=== PATIENT | male | born 1960 ===

== ENCOUNTER 2016-10-17 01:10 | Inpatient (IN) ==
--- NOTE | 2016-10-17 01:29 | Emergency Department Note ---
Arrival - Arrival Chief Complaint: Extremity Problem Stated Complaint: cellulitis ED Nursing Triage Note: Cellulitis to left lower extremity. Transfer from [facility] ER. Mode of Arrival: Stretcher Time Seen by Provider: 10/17/16 01:26 - History of Present Illness HPI Narrative: The patient was seen earlier at [facility] and diagnosed with cellulitis of the left lower extremity. He says symptoms started 2 days ago. The patient does drink alcohol. He denies diabetes. He does not know if he has had fever. He was previously worked up by Dr. Toño meek and sent here for admission. Allergies/Adverse Reactions: Allergies Allergy/AdvReac Type Severity Reaction Status Date / Time No Known Allergies Allergy Unverified 11/12/15 00:27 Home Medications: Home Medications Medication Instructions Recorded Confirmed Type HYDROcodone/ACETAMIN 7.5-325 1 tablet PO Q6H #6 tablet 11/12/15 Rx [[place] 7.5-325] Sulfameth/Trimeth 800-160 Tab 1 tablet PO BID #20 tablet 11/12/15 Rx [Bactrim DS Tab] Review of System - Review of System 12 point system: reviewed and no additional remarkable complaints except as stated Medical,Surgical,& Family Hx - Medical History Cardio: History of: Hypertension Endocrine: No history of: Diabetes Mellitus (IDDM) - Social History Smoking Status: Never smoker Frequency of Alcohol Use: Frequently Type of Drug Use: None Exam Physical Examination: General: Patient is well-developed and well-nourished with no acute distress noted. HEENT: The extraocular muscles are intact. Oropharynx is moist. There is no erythema or exudate. The tympanic membranes are shiny bilaterally. Neck: There is no adenopathy. Full range of motion is noted without pain. The trachea is midline. No JVD is present. Lungs: There is normal excursion of the chest with the lungs sounding clear bilaterally. No subcostal retractions are present. There is no point tenderness present. Heart: The heart has a regular rate and rhythm with no gallops or murmurs. Abdomen: The abdomen is nontender and nondistended with no rebound, guarding, or masses. Bowel sounds are normal. Back: The back demonstrates a normal appearance with no evidence of trauma. Genitourinary: Not examined. Extremities: The extremities demonstrate swelling and redness of the left lower extremity with some weeping at the ankle. The left leg is approximately twice as large as the right. Additionally the left leg is warm. Neuro: Cranial nerves II through XII are checked and intact. There is no focal motor or sensory deficit seen in the extremities. Skin: Skin is warm and dry with no evidence of rash. Vital Signs: Vital Signs Temperature 97.6 F 10/17/16 01:16 Pulse Rate 63 10/17/16 01:16 Respiratory Rate 18 10/17/16 01:16 Blood Pressure 115/77 10/17/16 01:16 O2 Sat by Pulse Oximetry 97 10/17/16 01:16 Course - Consultations Consultation #1: Dr. Wang Helms will evaluate and admit the patient. Time: 01:29 Disposition Clinical Impression: Cellulitis of left lower extremity Case discussed with: patient Disposition: Still a Patient Condition: Stable Time of Disposition: 01:30
[2016-10-17] MEDS ORDERED: DOCUSATE SODIUM 100 MG CAPSULE PO PRN (01:30)
[2016-10-17] MEDS ORDERED: ONDANSETRON 4 MG/2 ML VIAL IV PRN (01:30)
[2016-10-17] MEDS ORDERED: guaiFENesin/DM ER 600-30 MG TABLET PO PRN (01:30)
[2016-10-17] MEDS ORDERED: ZALEPLON 5 MG CAPSULE PO PRN (01:30)
[2016-10-17] MEDS ORDERED: VANCOMYCIN INJ 1,000 MG in SODIUM CHLORIDE 0.9% 250 ML IV STA (01:32)
[2016-10-17] MEDS ORDERED: VANCOMYCIN 1,000 MG VIAL ONE (02:38)
--- NOTE | 2016-10-17 02:48 | Hospitalist History & Physical ---
Assessment and Plan (1) Intoxication Status: Acute Current Visit: Yes (2) Cellulitis Status: Acute Current Visit: No (3) Lower extremity edema Status: Acute Assessment and plan: We will admit patient to our service. Patient will be placed on IV antibiotics. Patient will get a banana bag daily. Patient will wake up and talk to you. We will get an ultrasound in the morning to look for blood clots. The possible abscesses seen on CT scan are on one image. Hopefully patient can be evaluated more clearly when he is not as intoxicated. There is a possibility he would need a surgical evaluation. Current Visit: No History of Present Illness Chief complaint: Transfer from [facility] History of present illness: Mr. Orellana is a 56 year old male who was transferred from [facility]. Per records supplied from the [facility]. Patient is very intoxicated and showed up to the [facility] with a chief complaint of lower extremity left leg that is swollen. I talked to the patient he reports to me that these swelling has been going on for some time. The left leg is obviously red. I was consulted for admission. Patient was not sober enough to contribute any more to his history. Home Medications Medication Instructions Recorded Confirmed Type HYDROcodone/ACETAMIN 7.5-325 1 tablet PO Q6H #6 tablet 11/12/15 Rx [[place] 7.5-325] Sulfameth/Trimeth 800-160 Tab 1 tablet PO BID #20 tablet 11/12/15 Rx [Bactrim DS Tab] Allergies Allergy/AdvReac Type Severity Reaction Status Date / Time No Known Allergies Allergy Unverified 11/12/15 00:27 Medical,Surgical,& Family Hx - Medical History Cardio: History of: Hypertension HEENT: History of: Eye Problem (bilateral cataracts removed 2015) Endocrine: No history of: Diabetes Mellitus (IDDM) - Surgical History Orthopedic Surgeries: Surgical HX of;: Orthopedic Surgery (back 1991) - Social History Smoking Status: Never smoker Frequency of Alcohol Use: Frequently Type of Drug Use: None ROS unobtainable: due to delirium Exam - Constitutional Vitals: Period Temp Pulse Resp BP Sys/Schofield Pulse Ox Last 24 Hr 97.6 F-97.6 F 61-63 18-18 115-115/77-77 97 General appearance: normal weight, disheveled - Head Head exam: Present: normal inspection - Eye Pupils: Present: KAMALJIT - ENT ENT exam: Present: normal exam - Neck Neck exam: Present: normal inspection - Respiratory Respiratory exam: Present: clear to auscultation bilaterally - Cardiovascular Cardiovascular exam: Present: regular rate and rhythm - GI/Abdominal GI/Abdominal exam: Present: normal bowel sounds - Extremities Exam Extremities exam: Present: other (Patient has what appears to be bilateral lymphedema. It is more prominent on the left with erythematous changes noted on his calf and lower extremity) - Back Exam Back exam: Present: normal inspection - Neurological Exam Neurological exam: Present: other (Intoxicated) - Psychiatric Psychiatric exam: Present: other (Intoxicated) - Skin Skin exam: Present: erythema Results - Labs Labs: Labs from [facility] displayed glucose of 104 white count 5.0 hemoglobin 11.2 hematocrit 32.5 platelets 176 INR 1.14 alcohol level 488 BUN 4 creatinine 0.6 serum sodium 129 potassium 3.6 chloride 94 bicarb 22.4 troponin less than 0.15 BMP 77.[address] scan of his lower extremity without IV contrast and following the tibia and fibula. It showed findings compatible with few diffuse lower extremity cellulitis and possible small abscesses
[2016-10-17] MEDS ORDERED: THIAMINE INJ 100 MG, FOLIC ACID INJ 1 MG, MAGNESIUM SULF INJ 2 GM, MULTIVITAMIN INJ 10 ... IV ONE (05:00)
[2016-10-17 05:36] LABS: Basophils % 0.3 % (0.0-0.8); Eosinophils # 0.1 10*3/uL (0.0-0.87); Eosinophils % 1.6 % (0.00-10.9); Hematocrit 31.4 VOL% (42.0-52.0); Hemoglobin 10.8 GM/DL (14.0-18.0); Immature Granulocytes % 0.3 %; Immature Granulocytes Absolute 0.01 #; Lymphocytes # 0.9 10*3/uL (1.4-4.0); Lymphocytes % 29.3 % (21.2-54.2); Mean Corpuscular HGB Conc 34.4 GM/DL (32-36); Mean Corpuscular Hemoglobin 29 PG (27-34); Mean Corpuscular Volume 83.3 FL (87-102); Mean Platelet Volume 8.7 FL (9.6-12.0); Monocytes # 0.5 10*3/uL (0.11-0.8); Monocytes % 17.1 % (1.7-12.7); Neutrophils # 1.6 10*3/uL (1.4-7.4); Neutrophils % 51.4 % (38.7-73.9); Platelet Count 140 T/CUMM (130-400); Red Blood Count 3.77 MC/CUMM (3.8-5.5)
[2016-10-17 05:57] LABS: Band Neutrophils 1 % (0-10); Eosinophils 1 % (0-10); Hypochromasia 1+; Lymphocytes 24 % (20-55); Ovalocytes Slight; Platelet Estimate Normal; Segmented Neutrophils 55 % (50-85); Total Cells Counted 100
[2016-10-17 06:14] LABS: Calcium 7.6 MG/DL (8.5-10.1); Osmolality,Calculated 275.4 MOS/KG (273-304); Potassium 3.7 MMOL/L (3.5-5.1)
--- NOTE | 2016-10-17 07:49 | Ultrasound Report ---
US venous doppler LE BI Indication: Lower extremity swelling and pain. Comparison: None. Technique: Using a transcutaneous probe, grayscale, spectral Doppler, and color Doppler images of the bilateral lower extremity venous structures were captured and stored. Grayscale images prior to and following compression were obtained. Interrogated venous structures include the bilateral common femoral vein, superficial femoral vein (proximal, mid, and distal), and popliteal vein. Findings: There is no evidence of thrombus within the interrogated venous structures. The interrogated venous segments demonstrate presence of both color flow and spectral flow. Impression: 1. No evidence of venous thrombosis. 10/17/2016 7:46 AM PROCEDURE INTERPRETED AT [facility] DEPARTMENT OF RADIOLOGY Final Report Signed by: Dr. Micha Griffin
[2016-10-17] MEDS: CEFTAROLINE 600 MG in SODIUM CHLORIDE 0.9% 100 ML IV SCH ×2 (08:03→20:16)
[2016-10-17] MEDS: PANTOPRAZOLE 40 MG TABLET PO SCH (08:03)
[2016-10-17] MEDS: ENOXAPARIN 40 MG/0.4 ML SYRINGE SUBCUT SCH (08:03)
[2016-10-17] MEDS ORDERED: chlordiazePOXIDE 25 MG CAPSULE PO SCH (09:00)
[2016-10-17] MEDS ORDERED: chlordiazePOXIDE 10 MG CAPSULE PO SCH (12:35)
--- NOTE | 2016-10-17 12:36 | Hospitalist Progress Note ---
Assessment and Plan (1) Cellulitis of left lower extremity Status: Acute Assessment and plan: teflaro IV, no evidence of dvt Current Visit: Yes (2) Alcoholic Status: Acute Assessment and plan: cmp in am, beer on each tray, thiamine folate Current Visit: Yes (3) Anemia Status: Acute Assessment and plan: protonix Current Visit: Yes Hospitalist: Subjective Interval history: Patient really wanted to go home today. We asked him if we restarted his beer that he would stay and he agreed. Patient originally said he had to go home to pay bills but I believe that he was trying to get him to drink. His leg still is warm and erythematous and I do not want him leaving AMA. Exam - Constitutional Vitals: Period Temp Pulse Resp BP Sys/Schofield Pulse Ox Last 24 Hr 97.2 F-98.2 F 61-88 18-20 102-123/66-77 97-99 Exam: Heart Rate-[RRR] Lungs-[CTAB] GI-[+bs soft, NT] Ext-[severe swelling and erythema of LLE] Neuro [Motor 5/5], [alert and oriented times 3] psych [normal mood and affect] General [no acute distress] Results - Labs CBC & BMP: 10/17/16 05:29 10/17/16 05:29 Lab Results: I have reviewed the past 24 hour labs Labs: blood cx times 2 pending - Diagnostic Findings Procedure: Ultrasound: report reviewed by me (no dvt )
[2016-10-17] MEDS: THIAMINE 100 MG TABLET PO SCH (12:54)
[2016-10-17] MEDS: FOLIC ACID 1 MG TABLET PO SCH (12:54)
[2016-10-17] MEDS: SODIUM CHLORIDE 0.45% 1,000 ML IV SCH ×2 (12:55→23:04)
[2016-10-18 05:16] LABS: Basophils % 0.3 % (0.0-0.8); Eosinophils % 0.9 % (0.00-10.9); Hematocrit 31.8 VOL% (42.0-52.0); Hemoglobin 10.6 GM/DL (14.0-18.0); Immature Granulocytes % 0.3 %; Immature Granulocytes Absolute 0.01 #; Lymphocytes # 0.7 10*3/uL (1.4-4.0); Lymphocytes % 22.2 % (21.2-54.2); Mean Corpuscular HGB Conc 33.3 GM/DL (32-36); Mean Corpuscular Hemoglobin 29 PG (27-34); Mean Corpuscular Volume 85.9 FL (87-102); Mean Platelet Volume 9.4 FL (9.6-12.0); Monocytes # 0.5 10*3/uL (0.11-0.8); Monocytes % 15.7 % (1.7-12.7); Neutrophils % 60.6 % (38.7-73.9); Platelet Count 116 T/CUMM (130-400); Red Cell Distribution Width 17.5 % (9.3-17.3); White Blood Count 3.3 T/CUMM (4-12)
[2016-10-18 05:51] LABS: Eosinophils 2 % (0-10); Lymphocytes 20 % (20-55); Segmented Neutrophils 59 % (50-85); Total Cells Counted 100
[2016-10-18 05:52] LABS: Platelet Estimate Adequate
[2016-10-18 06:05] LABS: Albumin 2.4 G/DL (3.4-5.0); Bilirubin,Total 0.9 MG/DL (0.2-1.0); Calcium 7.6 MG/DL (8.5-10.1); Osmolality,Calculated 276.3 MOS/KG (273-304); Potassium 3.7 MMOL/L (3.5-5.1); Total Protein 7.3 G/DL (6.4-8.3)
[2016-10-18] MEDS: SODIUM CHLORIDE 0.45% 1,000 ML IV SCH (09:08)
[2016-10-18] MEDS: FOLIC ACID 1 MG TABLET PO SCH (09:08)
[2016-10-18] MEDS: ENOXAPARIN 40 MG/0.4 ML SYRINGE SUBCUT SCH (09:09)
[2016-10-18] MEDS: PANTOPRAZOLE 40 MG TABLET PO SCH (09:09)
[2016-10-18] MEDS: THIAMINE 100 MG TABLET PO SCH (09:09)
[2016-10-18] MEDS: CEFTAROLINE 600 MG in SODIUM CHLORIDE 0.9% 100 ML IV SCH ×2 (09:41→20:25)
--- NOTE | 2016-10-18 10:49 | CT Report ---
CT lower leg LT w con Indication: Abscess. Comparison: None. Technique: Multiple contiguous axial images were obtained from the left knee through the foot following administration of intravenous contrast. Images were acquired using osseous algorithm. Coronal and sagittal MPR images additionally were provided. Findings: There is diffuse reticulation of the subcutaneous layer throughout the imaged portion of the right lower extremity. This is compatible with edema or sequelae of infection and is more pronounced below the level of the knee. There is evidence of dermal thickening at the level of the ankle particularly along the medial surface. Also along the medial surface of the left tibia, there is a fluid collection measuring 12 mm in transverse dimension and 43 mm in AP dimension. This is difficult to visualize on the coronal sequence, but measures approximately 75 mm in craniocaudal dimension. The cortex of the tibia and fibula appear intact. There is no evidence of intramuscular abscess. An additional fluid collection with peripheral thin enhancing wall noted within the anterior subcutaneous layer of the lower tibia is best visualized axial image #[id number]. This measures 10 mm AP dimension, 28 mm transverse dimension, and 28 mm in craniocaudal dimension. There is diffuse skin thickening along the dorsum of the foot. No definite abscess is identified. Impression: 1. 2 discrete fluid collections compatible with abscess are demonstrated within the lower leg at the level of the ankle. One of these along the medial malleolus of the tibia extends cephalad along the medial soft tissues without involvement of periosteum or intramuscular extension. The second appears to possibly contiguous with the more medial collection and lies within the anterior subcutaneous tissues, also without evidence of intramuscular extension. 2. Diffuse edema of the lower extremity is present. 3. Dermal thickening particularly at the level of the ankle and foot is favored to reflect sequelae of cellulitis. 10/18/2016 10:41 AM PROCEDURE INTERPRETED AT [facility] DEPARTMENT OF RADIOLOGY Final Report Signed by: Dr. Micha Griffin
--- NOTE | 2016-10-18 11:32 | Hospitalist Progress Note ---
Assessment and Plan (1) Cellulitis of left lower extremity Status: Acute Assessment and plan: cont teflaro IV, ct shows evidence of abscess, consult Dr Whitt, npo for now Current Visit: Yes (2) Alcoholic Status: Acute Assessment and plan: increase beer to 2 cans tid, thiamine and folate Current Visit: Yes (3) Anemia Status: Acute Assessment and plan: protonix Current Visit: Yes (4) Edema Status: Acute Assessment and plan: bnp and echo, HL IVF Current Visit: Yes Hospitalist: Subjective Interval history: Patient shows no evidence of DTs. He would like to have more beer on his tray. His left lower extremity the erythema looks better but there is some discrete areas that seem to be consistent with abscesses. CT of his lower extremity does confirm that he does have abscesses. Will consult Dr. Whitt for possible drainage. Exam - Constitutional Vitals: Period Temp Pulse Resp BP Sys/Schofield Pulse Ox Last 24 Hr 97.7 F-99.8 F 75-82 18-20 109-155/60-104 94-98 Exam: Heart Rate-[RRR] Lungs-[CTAB] GI-[+bs soft, NT] Ext-[severe swelling and erythema of LLE alittle better but discrete areas of abscess] Neuro [Motor 5/5], [alert and oriented times 3] psych [normal mood and affect] General [no acute distress] Results - Labs CBC & BMP: 10/18/16 04:37 10/18/16 04:37 Lab Results: I have reviewed the past 24 hour labs - Diagnostic Findings Procedure: CT: report reviewed by me (leg abscess and intense edema )
[2016-10-18] MEDS ORDERED: metroNIDAZOLE INJ 500 MG in PREMIX 1 EACH IV ONE (12:11)
[2016-10-18] MEDS ORDERED: LEVOFLOXACIN INJ 750 MG in PREMIX 1 EACH IV ONE (12:11)
[2016-10-18] MEDS ORDERED: BUPIVACAINE MPF 0.25% /EPI 30 ML VIAL ONE (12:21)
[2016-10-18] MEDS ORDERED: LIDOCAINE 1%/EPI INJ 20 ML VIAL ONE (12:21)
[2016-10-18] MEDS ORDERED: PROPOFOL 200 MG/20 ML VIAL IV ONE (13:38)
[2016-10-18] MEDS ORDERED: LIDOCAINE 2% 5 ML VIAL ONE (13:38)
--- NOTE | 2016-10-18 13:58 | General Surgery Consult Note ---
Assessment and Plan - Time spent with patient Time spent with patient: Greater than 30 minutes (1) Cellulitis and abscess of left lower extremity Status: Acute Assessment and plan: 56-year-old male with history of alcoholism and hypertension admitted by the hospitalist service with left lower extremity pain and edema along with alcohol intoxication. CT of the lower leg shows multiple abscesses. Dr. Whitt will take the patient to the OR today for incision and debridement of these left lower extremity abscesses. Patient is on Teflaro and will continue this currently pending cultures from the OR. Dr. Whitt to see and examine patient. Current Visit: Yes (2) Lower extremity edema Status: Acute Current Visit: No (3) Cellulitis of left lower extremity Status: Acute Current Visit: Yes (4) Alcoholic Status: Acute Current Visit: Yes (5) Pancytopenia Status: Acute Current Visit: Yes History of Present Illness Chief complaint: Left leg pain History of present illness: Mr. Orellana is a 56 year old male with history of hypertension admitted by the hospitalist service on 10/17/2016 with alcohol intoxication complaining of left lower extremity leg pain. Patient states he has had lower extremity swelling for approximately 3 years. He says the pain in the leg started about 2 days ago when he got to where he could not walk. He denies fevers, chills, headaches, chest pain, shortness of breath, abdominal pain. Patient is on a banana bag for DTs, IV antibiotics, pain and nausea control. His ultrasound is negative for DVT and his white count is normal. He is afebrile and vital signs stable. He has a large tight edematous leg with erythema and tenderness around the lower leg and ankle. He has some open areas that are draining clear fluid but he does have a pocket of induration on the anterior and medial ankle. CT scan done shows 2 discrete fluid collections compatible with abscess on the lower leg at the level of the ankle. One along the medial malleolus of the tibia extending cephalad along the medial soft tissues without involvement of periosteum or intramuscular extension. The second appears to be contiguous with the more medial collection and lies within the anterior subcutaneous tissues. Dr. Whitt has been consulted for evaluation. Home Medications Medication Instructions Recorded Confirmed Type HYDROcodone/ACETAMIN 7.5-325 1 tablet PO Q6H #6 tablet 11/12/15 10/17/16 Rx [[place] 7.5-325] Sulfameth/Trimeth 800-160 Tab 1 tablet PO BID #20 tablet 11/12/15 10/17/16 Rx [Bactrim DS Tab] Allergies Allergy/AdvReac Type Severity Reaction Status Date / Time No Known Allergies Allergy Unverified 11/12/15 00:27 Medical,Surgical,& Family Hx - Medical History Cardio: History of: Hypertension, Cardiovascular Problems ("Heart Murmur") HEENT: History of: Eye Problem (bilateral cataracts removed 2015) Endocrine: No history of: Diabetes Mellitus (IDDM) Respiratory: History of: Asthma Gastrointestinal: History of: Hepatitis ("Hepatitis when I was 16") - Surgical History Orthopedic Surgeries: Surgical HX of;: Orthopedic Surgery (back 1991) - Family History Family History: Reports;: Family Diabetes, Family Heart Disease - Social History Smoking Status: Never smoker Frequency of Alcohol Use: Frequently Type of Drug Use: None Marital Status: Lives With:: Parent Functional capacity: independent ambulation Review of systems: A complete 10 system review of systems was obtained and pertinent positives and negatives per HPI Exam - Constitutional Vitals: Period Temp Pulse Resp BP Sys/Schofield Pulse Ox Last 24 Hr 97.7 F-99.8 F 75-85 18-20 109-156/60-104 94-98 Exam: 56-year-old male, no acute distress, alert and oriented Chest clear CV regular rate and rhythm, 2/6 murmur Abdomen obese nontender Extremities left lower leg with edema, tight, induration and tenderness anterior and medial ankle, no palpable pulses due to edema Results - Labs CBC & BMP: 10/18/16 04:37 10/18/16 04:37 Lab Results: I have reviewed the past 24 hour labs - Diagnostic Findings Procedure: CT: report reviewed by me (CT of the left lower leg shows 2 discrete fluid collections compatible with abscess. One along the medial malleolus extending cephalad along the medial soft tissues without involvement of periosteum or intramuscular extension. The second appears to possibly contiguous with the more medial collection lies within the anterior subcutaneous tissue without evidence of intramuscular extension. Diffuse edema. Dermal thickening), Ultrasound: report reviewed by me (No evidence of DVT)
--- NOTE | 2016-10-18 14:18 | Anesthesia Post-Op ---
Anesthesia Post OP - Post Ansesthetic Evaluation Patient seen in post op: Yes Resp: within normal limits CV: within normal limits Mental: within normal limits Temp: within normal limits [id number]: within normal limits Nausea and Vomiting: within normal limits Pain: within normal limits
--- NOTE | 2016-10-18 14:23 | Operative Note ---
Date of procedure: 10/18/16 Pre-op diagnosis: Left lower extremity abscess Post-op diagnosis: same Procedure: Preoperative diagnosis Left lower extremity abscess Postoperative diagnosis Same Procedures performed Incision and drainage of left lower extremity abscess Findings 2 separate fluid pockets were found through 1 incision in the left lower leg anteriorly. This matched up with CT scan findings. Purulent fluid was drained and cultures were sent to the lab. Complications None apparent Specimen Cultures from left lower leg abscess Anesthesia General LMA Blood loss Minimal Indications Left lower leg abscesses Description of procedure The patient was taken to the operating room and transferred to the operating table in the supine position. Pressure points were padded and general anesthesia was administered. The left leg was prepped with chlorhexidine and draped sterilely. Timeout was called. Incision was made over an fluctuant area in the left lower anterior leg and pus was drained. Cultures were sent to the lab. The additional pocket of fluid seen on the CT was found through tunneling in the subcutaneous tissues and loculations were broken up to create one cavity. This was then irrigated copiously and packed with iodoform gauze. The leg was dressed with dry gauze and cast padding and Kerlix. The patient was then transferred to recovery after he was awakened from anesthesia. Postoperative plan Wound care and antibiotic Anesthesia: ANNA Surgeon / Physician: Tray Whitt Estimated blood loss: minimal Specimens: other (cultures) Condition: stable Disposition: PACU Results - Labs CBC & BMP: 10/18/16 04:37 10/18/16 04:37 Discharge Plan - Discharge Medications No Action HYDROcodone/ACETAMIN 7.5-325 [[place] 7.5-325] 1 tablet PO Q6H #6 tablet Sulfameth/Trimeth 800-160 Tab [Bactrim DS Tab] 1 tablet PO BID #20 tablet - Follow Up or Referral - Forms/Instructions
[2016-10-18] MEDS ORDERED: MIDAZOLAM 2 MG/2 ML VIAL ONE (14:25)
[2016-10-18] MEDS ORDERED: SEVOFLURANE 1 UNIT/15 MINUTE INH ONE (14:25)
[2016-10-18] MEDS ORDERED: fentaNYL 100 MCG/2 ML VIAL ONE (14:26)
[2016-10-18] MEDS ORDERED: ONDANSETRON 4 MG/2 ML VIAL IV PRN (14:33)
[2016-10-18] MEDS ORDERED: ONDANSETRON 4 MG/2 ML VIAL ONE (14:39)
[2016-10-18] MEDS: HYDROmorphone 2 MG/1 ML VIAL IV PRN ×4 (14:39→14:58)
[2016-10-18] MEDS ORDERED: HYDROmorphone 2 MG/1 ML VIAL ONE (14:39)
[2016-10-18] MEDS ORDERED: LACTATED RINGERS 1,000 ML IV SCH (15:00)
[2016-10-18] MEDS ORDERED: GLUCAGON 1 MG VIAL IM PRN (15:48)
[2016-10-18] MEDS ORDERED: DEXTROSE 50% 25 GM/50 ML VIAL IV PRN (15:48)
[2016-10-18] MEDS: INSULIN REGULAR 100 UNIT/ML SUBCUT SCH ×2 (16:26→22:51)
[2016-10-19 06:32] LABS: Basophils % 0.2 % (0.0-0.8); Eosinophils # 0.1 10*3/uL (0.0-0.87); Eosinophils % 1.3 % (0.00-10.9); Hematocrit 33.6 VOL% (42.0-52.0); Hemoglobin 11.2 GM/DL (14.0-18.0); Immature Granulocytes % 0.4 %; Immature Granulocytes Absolute 0.02 #; Lymphocytes # 0.6 10*3/uL (1.4-4.0); Mean Corpuscular HGB Conc 33.3 GM/DL (32-36); Mean Corpuscular Hemoglobin 29 PG (27-34); Mean Corpuscular Volume 86.2 FL (87-102); Mean Platelet Volume 9.7 FL (9.6-12.0); Monocytes # 0.7 10*3/uL (0.11-0.8); Monocytes % 14.6 % (1.7-12.7); Neutrophils # 3.2 10*3/uL (1.4-7.4); Neutrophils % 69.5 % (38.7-73.9); Platelet Count 104 T/CUMM (130-400); Red Cell Distribution Width 17.1 % (9.3-17.3); White Blood Count 4.6 T/CUMM (4-12)
[2016-10-19 07:23] LABS: Albumin 2.5 G/DL (3.4-5.0); Bilirubin,Total 1.1 MG/DL (0.2-1.0); Calcium 7.4 MG/DL (8.5-10.1); Osmolality,Calculated 265.1 MOS/KG (273-304); Potassium 3.4 MMOL/L (3.5-5.1); Total Protein 7.8 G/DL (6.4-8.3)
[2016-10-19] MEDS: INSULIN REGULAR 100 UNIT/ML SUBCUT SCH ×2 (08:27→11:20)
[2016-10-19] MEDS: CEFTAROLINE 600 MG in SODIUM CHLORIDE 0.9% 100 ML IV SCH ×2 (09:42→20:13)
[2016-10-19] MEDS: PANTOPRAZOLE 40 MG TABLET PO SCH (09:43)
[2016-10-19] MEDS: ENOXAPARIN 40 MG/0.4 ML SYRINGE SUBCUT SCH (09:43)
[2016-10-19] MEDS: FOLIC ACID 1 MG TABLET PO SCH (09:43)
[2016-10-19] MEDS: THIAMINE 100 MG TABLET PO SCH (09:43)
[2016-10-19] MEDS ORDERED: MAGNESIUM CITRATE 300 ML BOTTLE PO ONE (09:48)
[2016-10-19] MEDS: POTASSIUM CHLORIDE 20 MEQ TABLET PO SCH (11:37)
[2016-10-19] MEDS: FUROSEMIDE 40 MG/4 ML VIAL IV SCH (11:38)
--- NOTE | 2016-10-19 11:46 | Event Note ---
General Surgery Progress Note Chief complaint This patient is a 56-year-old man admitted with cellulitis and abscess of his left lower leg treated with incision and drainage of abscess on 10/18/2016 Interval history Initial cultures have grown gram-positive cocci. Final cultures are pending. Patient feels okay but is having some cramping pain near the incision site. Physical exam Afebrile with normal vital signs Left leg wound is improved with decreased cellulitis and the wound is clean with no necrotic tissue or additional purulence Labs Reviewed Imaging None Assessment and plan Continue wound care and antibiotics follow-up cultures
--- NOTE | 2016-10-19 12:24 | Hospitalist Progress Note ---
Assessment and Plan (1) Cellulitis of left lower extremity Status: Acute Assessment and plan: s/p I&D by Dr. Whitt. cont teflaro IV, will add vancomycin due to wound cx growing gram + cocci Current Visit: Yes (2) Alcoholic Status: Acute Assessment and plan: cont beer to 2 cans tid, thiamine and folate Current Visit: Yes (3) Anemia Status: Acute Assessment and plan: protonix Current Visit: Yes (4) Edema Status: Acute Assessment and plan: lasix and potassium, echo ordered but not done Current Visit: Yes (5) Hypertension Status: Acute Assessment and plan: monitor for now Current Visit: Yes Hospitalist: Subjective Interval history: Left leg is still very swollen. He has not had a bowel movement since he has been here. We will give him a dose of mag citrate. Potassium is low and will need to be replaced Exam - Constitutional Vitals: Period Temp Pulse Resp BP Sys/Schofield Pulse Ox Last 24 Hr 97.4 F-98.7 F 16-89 14-22 131-160/76-102 96-100 Exam: Heart Rate-[RRR] Lungs-[CTAB] GI-[+bs soft, NT] Ext-[severe swelling and but erythema much improved Neuro [Motor 5/5], [alert and oriented times 3] psych [normal mood and affect] General [no acute distress] Results - Labs CBC & BMP: 10/19/16 05:57 10/19/16 05:57 Lab Results: I have reviewed the past 24 hour labs
[2016-10-19] MEDS ORDERED: MORPHINE 2 MG/1 ML SYRINGE IV PRN (13:16)
[2016-10-19] MEDS ORDERED: VANCOMYCIN INJ 1,750 MG in SODIUM CHLORIDE 0.9% 500 ML IV SCH (14:00)
[2016-10-19] MEDS: VANCOMYCIN INJ 1,750 MG in SODIUM CHLORIDE 0.9% 500 ML IV SCH ×2 (16:04→22:29)
[2016-10-20] MEDS: VANCOMYCIN INJ 1,750 MG in SODIUM CHLORIDE 0.9% 500 ML IV SCH ×2 (05:31→14:29)
[2016-10-20 06:39] LABS: Basophils % 0.4 % (0.0-0.8); Eosinophils # 0.1 10*3/uL (0.0-0.87); Eosinophils % 2.4 % (0.00-10.9); Hematocrit 32.9 VOL% (42.0-52.0); Immature Granulocytes % 0.6 %; Immature Granulocytes Absolute 0.03 #; Lymphocytes # 0.8 10*3/uL (1.4-4.0); Lymphocytes % 14.2 % (21.2-54.2); Mean Corpuscular HGB Conc 33.4 GM/DL (32-36); Mean Corpuscular Hemoglobin 29 PG (27-34); Mean Corpuscular Volume 86.6 FL (87-102); Mean Platelet Volume 9.4 FL (9.6-12.0); Monocytes # 0.8 10*3/uL (0.11-0.8); Neutrophils # 3.7 10*3/uL (1.4-7.4); Neutrophils % 68.4 % (38.7-73.9); Platelet Count 90 T/CUMM (130-400); Red Cell Distribution Width 17.2 % (9.3-17.3); White Blood Count 5.4 T/CUMM (4-12)
[2016-10-20 07:01] LABS: Calcium 7.4 MG/DL (8.5-10.1); Magnesium 1.7 MG/DL (1.8-2.4); Osmolality,Calculated 266.1 MOS/KG (273-304); Potassium 3.2 MMOL/L (3.5-5.1)
--- NOTE | 2016-10-20 07:28 | ECHO Report ---
Shaun Orellana Exam Date: 10/19/2016 13:36 Referring Physician: Technologist: Gina Mcintosh Age: 56 Ht (in): 67 Wt (lb): 250 Gender: M Exam Location: [facility] ([place] Echo Indications: edema, anemia, celluitis, intoxication, hepititis, asthma, diabetes, HTN, lower extremities, alcoholic, pancytopenia BP: 146 / 90 HR: 77 Rhythm: Sinus Technical Quality: Technically difficult study IMPRESSIONS Mild concentric left ventricular hypertrophy with diastolic dysfunction. Left ventricular ejection fraction is estimated at > 55-60 %. Mildly increased left atrial diameter. Mild mitral annular and leaflet calcification with mild mitral regurgitation. Aortic valve sclerosis without stenosis. Trace aortic valve regurgitation. Tricuspid regurgitation velocities suggest a PAP of 26.6 mmHg + RAP. MEASUREMENTS (Male / Female) Normal Values 2D ECHO LV Diastolic Diameter PLAX 4.6 cm 4.2 - 5.9 / 3.9 - 5.3 cm LV Systolic Diameter PLAX 2.5 cm LV Fractional Shortening PLAX 46.8 % IVS Diastolic Thickness 1.8 cm 0.6 - 1.0 / 0.6 - 0.9 cm LVPW Diastolic Thickness 1.4 cm 0.6 - 1.0 / 0.6 - 0.9 cm Aortic Root Diameter 3.0 cm LA Systolic Diameter LX 4.1 cm 3.0 - 4.0 / 2.7 - 3.8 cm DOPPLER TR Peak Velocity 258.0 cm/s TR Peak Gradient 26.6 mmHg FINDINGS Left Ventricle Severely increased septal wall thickness. Mild concentric left ventricular hypertrophy with diastolic dysfunction. Left ventricular ejection fraction is estimated at 55-60 %. Right Ventricle Normal right ventricular size. Right Atrium Normal right atrial size. Left Atrium Mildly increased left atrial diameter. Mitral Valve Mild mitral annular and leaflet calcification with mild mitral regurgitation. Aortic Valve Aortic valve sclerosis without stenosis.trace aortic valve regurgitation. Tricuspid Valve Morphologically normal tricuspid valve. Tricuspid regurgitation velocities suggest a PAP of 26.6 mmHg + RAP. Pulmonic Valve Morphologically normal pulmonic valve. Pericardium No pericardial effusion. Aorta Normal size aortic root and proximal ascending aorta. Kishore Doss MD (Electronically Signed) Final Date: 20 October 2016 07:27
[2016-10-20 07:34] LABS: Hypochromasia Slight
[2016-10-20] MEDS: THIAMINE 100 MG TABLET PO SCH (08:50)
[2016-10-20] MEDS: POTASSIUM CHLORIDE 20 MEQ TABLET PO SCH ×2 (08:50→21:35)
[2016-10-20] MEDS: PANTOPRAZOLE 40 MG TABLET PO SCH (08:50)
[2016-10-20] MEDS: FOLIC ACID 1 MG TABLET PO SCH (08:50)
[2016-10-20] MEDS: ENOXAPARIN 40 MG/0.4 ML SYRINGE SUBCUT SCH (08:50)
[2016-10-20] MEDS: FUROSEMIDE 40 MG/4 ML VIAL IV SCH (08:50)
--- NOTE | 2016-10-20 09:24 | Event Note ---
General Surgery Progress Note Chief complaint This patient is a 56-year-old man admitted with cellulitis and abscess of his left lower leg treated with incision and drainage of abscess on 10/18/2016 Interval history No events overnight. Physical exam Afebrile with normal vital signs Left leg wound is stable with stable cellulitis and the wound is clean with no necrotic tissue or additional purulence Labs Reviewed Imaging None Assessment and plan Continue wound care and antibiotics follow-up final cultures
[2016-10-20] MEDS: CEFTAROLINE 600 MG in SODIUM CHLORIDE 0.9% 100 ML IV SCH (09:40)
--- NOTE | 2016-10-20 11:52 | Hospitalist Progress Note ---
Assessment and Plan (1) Cellulitis of left lower extremity Status: Acute Assessment and plan: s/p I&D by Dr. Whitt. cont teflaro IV and vancomycin await identity of wound cx Current Visit: Yes (2) Alcoholic Status: Acute Assessment and plan: cont beer to 2 cans tid, thiamine and folate Current Visit: Yes (3) Anemia Status: Acute Assessment and plan: protonix Current Visit: Yes (4) Edema Status: Acute Assessment and plan: lasix and potassium, echo normal Current Visit: Yes (5) Hypertension Status: Acute Assessment and plan: controlled Current Visit: Yes (6) Thrombocytopenia Status: Acute Assessment and plan: due to cirrhosis Current Visit: Yes Hospitalist: Subjective Interval history: Discussed case with Dr. Whitt. Patient is going to need to go home tomorrow. But we want to set up outpatient wound care at the [facility]. Patient is a drinker and tends to be noncompliant with his care. Exam - Constitutional Vitals: Period Temp Pulse Resp BP Sys/Schofield Pulse Ox Last 24 Hr 97.4 F-100.2 F 73-88 18-20 120-139/70-83 94-98 Exam: Heart Rate-[RRR] Lungs-[CTAB] GI-[+bs soft, NT] Ext-[severe swelling improving, wounds are wrapped Neuro [Motor 5/5], [alert and oriented times 3] psych [normal mood and affect] General [no acute distress] Results - Labs CBC & BMP: 10/20/16 05:46 10/20/16 05:46 Lab Results: I have reviewed the past 24 hour labs Labs: Wound culture growing gram-positive cocci, blood cultures 2 negative no growth
[2016-10-20] MEDS: VANCOMYCIN INJ 1,500 MG in SODIUM CHLORIDE 0.9% 500 ML IV SCH (17:32)
[2016-10-21] MEDS: VANCOMYCIN INJ 1,500 MG in SODIUM CHLORIDE 0.9% 500 ML IV SCH ×2 (01:50→10:08)
[2016-10-21 06:48] LABS: Calcium 7.6 MG/DL (8.5-10.1); Magnesium 1.9 MG/DL (1.8-2.4); Osmolality,Calculated 270.8 MOS/KG (273-304); Potassium 3.9 MMOL/L (3.5-5.1)
[2016-10-21] MEDS: POTASSIUM CHLORIDE 20 MEQ TABLET PO SCH (09:20)
[2016-10-21] MEDS: PANTOPRAZOLE 40 MG TABLET PO SCH (09:20)
[2016-10-21] MEDS: THIAMINE 100 MG TABLET PO SCH (09:20)
[2016-10-21] MEDS: ENOXAPARIN 40 MG/0.4 ML SYRINGE SUBCUT SCH (09:21)
[2016-10-21] MEDS: FUROSEMIDE 40 MG/4 ML VIAL IV SCH (09:21)
[2016-10-21] MEDS: FOLIC ACID 1 MG TABLET PO SCH (09:21)
--- NOTE | 2016-10-21 09:30 | Discharge Summary ---
Hospital Course - Hospital Course Hospital Course: Mr. Orellana is a 56 year old male who was admitted on 10/17/2016 after transfer from [facility]. He presented here with left leg pain and was intoxicated with alcohol. He also had left leg swelling and it was red. He was evaluated with the venous Dopplers DVT was ruled out he had echocardiogram which showed normal ejection fraction his pulmonary artery pressure was 26 mmHg. He apparently had no fever on admission was noted have low-grade temperature of 100.2 yesterday he has been afebrile since then. He was seen by Dr. Whitt due to presence of cellulitis and abscess of liver lower extremitiy. On 10/18/2016 he underwent incision and drainage of left lower extremity abscess. His blood culture had been negative but culture from abscess showed Streptococcus dysgalactia. Initially he was on Teflaro but later switched to vancomycin. Patient was evaluated by Dr. Whitt again after surgery and feels the wound is clean and there is no necrotic tissue or additional purulence. He seems stable and will be placed on p.o. clindamycin. He will get dressing change via home health or [facility]. He needs to follow-up with Dr. Whitt in 1 week on admission he noted to have pancytopenia likely due to alcohol-related a white count actually did improve while he is off alcohol here. Hemoglobin hematocrit is stable. Continue to follow up with his primary care provider also Diagnosis - Discharge Diagnosis (1) Cellulitis and abscess of left lower extremity Status: Acute (2) Hypertension Status: Acute (3) Pancytopenia Status: Acute (4) Alcoholic Status: Acute Specialty Discharge - Follow Up or Referrals Follow up with: Tray Whitt MD [Physician] - 1 Week Discharge Plan - Discharge Data Disposition: Home Health Service Condition at Discharge: Stable Discharge Diet: low salt diet Activity: resume usual activities as tolerated - Discharge Medications New Thiamine Tab [Vitamin B1 Tab] 100 mg PO DAILY #30 tablet Clindamycin Cap [Cleocin Cap] 450 mg PO Q8HR #21 capsule Folic Acid Tab 1 mg PO DAILY #30 tablet Clindamycin HCl [Clindamycin Cap] 300 mg PO QID #28 capsule Continue HYDROcodone/ACETAMIN 7.5-325 [Ragan 7.5-325] 1 tablet PO Q6H #6 tablet Discontinued Sulfameth/Trimeth 800-160 Tab [Bactrim DS Tab] 1 tablet PO BID #20 tablet - Follow Up or Referral Follow Up: Tray Whitt MD [Physician] - 1 Week - Forms/Instructions Exam - Constitutional Vitals: Period Temp Pulse Resp BP Sys/Schofield Pulse Ox Last 24 Hr 98.3 F-99.0 F 68-80 16-19 129-138/70-84 94-98 General appearance: no acute distress, over weight - Respiratory Respiratory exam: Present: clear to auscultation bilaterally. Absent: rales, rhonchi - Cardiovascular Cardiovascular exam: Present: regular rate and rhythm. Absent: JVD, tachycardia - GI/Abdominal GI/Abdominal exam: Present: normal bowel sounds, soft. Absent: distended, tenderness - Extremities Exam Extremities exam: Present: edema (Patient with edema of left lower extremity with wound at left sotelo from I&D look clean without any drainage) - Neurological Exam Neurological exam: Present: alert, oriented X3 Discharge Results Procedures and tests throughout hospitalization: Pending Orders 10/17/16 02:46 Blood Culture Stat 10/21/16 14:00 Vancomycin,Trough Routine Labs on day of discharge: Labs from last 24 hours 10/21/16 10/20/16 06:03 12:54 Sodium 137 Potassium 3.9 Chloride 104 Carbon Dioxide 26 Anion Gap 10.9 BUN 6 L Creatinine 0.80 GFR Calculation 130 BUN/Creatinine Ratio 7.00 Glucose 95 Calculated Osmolality 270.8 L Calcium 7.6 L Magnesium 1.9 Vancomycin Trough 24.0 H Preliminary micro results at discharge 10/17/16 02:46 Blood Culture - Preliminary Blood No growth at 3 days 10/17/16 02:46 Blood Culture - Preliminary Blood No growth at 3 days DS: Provider Date of admission: 10/17/16 01:30 Primary care physician: Obi Null MD Attending physician on admission: Wang Helms MD Consults: 10/18/16 10:04 Consult to Physical Therapy [CONS] Routine Reason for Physical Therapy: Evaluate and Treat 10/18/16 11:25 Consult to Physician [CONS] Routine Comment: abscess Consulting Provider: Tray Whitt When should Consulting Provider be notified: Now Person Notified: MD lyons Date Notified: 10/18/16 Time Notified: 11:45 10/19/16 12:26 Consult to Pharmacy [CONS] Routine Reason for Pharmacy Consult: Dose/Manage Vancomycin 10/20/16 10:24 Consult to Case Mgmt/Social Srvs [CONS] Routine Reason for Case Mgmt/Social Srvs: Other Consult Comment: wound care at [facility] 10/21/16 09:00 Consult to Case Mgmt/Social Srvs [CONS] Routine Reason for Case Mgmt/Social Srvs: Home Health Consult Comment: okay to set up Home health with dressing changes Discharging clinician: Jaison Marques MD
--- NOTE | 2016-10-21 09:41 | Event Note ---
General surgery progress note 56-year-old male admitted with left lower leg abscess and alcohol intoxication treated with incision and drainage on 10/18/[address] Whitt. Afebrile with vital signs stable, left leg wound is stable, clean with no necrotic tissue or purulence. Assessment and plan Continue daily wound care at this [facility] or [facility] Wound is sensitive to clindamycin, prescription has been transmitted to [facility] Follow-up with Dr. Whitt in 1-2 weeks in the office Dr. Whitt has seen and examined patient and agrees with discharge
[2016-10-21] MEDS ORDERED: SODIUM HYPOCHLORITE 0.25% IRRIG 473 ML BOTTLE TOP SCH (10:00)
[2016-10-21] MEDS ORDERED: CHLORHEXIDINE 4% SOLN 118 ML BOTTLE TOP SCH (10:00)
[2016-10-21 11:25] VITALS: BP 150/84
== END 2016-10-21 14:41 | disposition home or self-care (01) | DRG 603 ==
LOC: EDUNIT# → EDBD → N.ED 01:10 → N.EDINP 01:30 → SUATTDRO 01:30 → N.5E 02:17
PROVIDERS: ADMIT Internal Medicine; ATTEND Internal Medicine

== ENCOUNTER 2018-01-21 17:15 | Inpatient (IN) ==
[2018-01-21 21:38] LABS: Basophils % 0.3 % (0.0-0.8); Eosinophils # 0.1 10*3/uL (0.0-0.87); Eosinophils % 3.1 % (0.00-10.9); Hematocrit 18.7 VOL% (42.0-52.0); Immature Granulocytes % 5.5 %; Immature Granulocytes Absolute 0.18 #; Lymphocytes # 0.4 10*3/uL (1.4-4.0); Lymphocytes % 13.2 % (21.2-54.2); Mean Corpuscular HGB Conc 27.8 GM/DL (32-36); Mean Corpuscular Hemoglobin 26 PG (27-34); Monocytes # 0.2 10*3/uL (0.11-0.8); Monocytes % 6.1 % (1.7-12.7); Neutrophils # 2.3 10*3/uL (1.4-7.4); Neutrophils % 71.8 % (38.7-73.9); Red Blood Count 1.99 MC/CUMM (3.8-5.5); Red Cell Distribution Width 24.6 % (9.3-17.3); White Blood Count 3.3 T/CUMM (4-12)
[2018-01-21 21:44] LABS: Hemoglobin 5.2 GM/DL (14.0-18.0); Platelet Count 28 T/CUMM (130-400)
[2018-01-21 21:54] LABS: INR 1.9; PT Patient Result 19.7 SECS
[2018-01-21 22:02] LABS: Albumin 1.7 G/DL (3.4-5.0); Bilirubin,Total 6.4 MG/DL (0.2-1.0); Calcium 6.9 MG/DL (8.5-10.1); Osmolality,Calculated 276.3 MOS/KG (273-304); Potassium 2.9 MMOL/L (3.5-5.1)
[2018-01-21] MEDS ORDERED: SODIUM CHLORIDE 0.9% 1,000 ML IV PRN (22:23)
[2018-01-21] MEDS ORDERED: ONDANSETRON 4 MG/2 ML VIAL IV PRN (22:45)
[2018-01-21 23:20] LABS: Basophils % 0.3 % (0.0-0.8); Eosinophils # 0.1 10*3/uL (0.0-0.87); Hematocrit 19.5 VOL% (42.0-52.0); Immature Granulocytes % 4.3 %; Immature Granulocytes Absolute 0.14 #; Lymphocytes # 0.4 10*3/uL (1.4-4.0); Lymphocytes % 12.1 % (21.2-54.2); Mean Corpuscular HGB Conc 27.2 GM/DL (32-36); Mean Corpuscular Hemoglobin 26 PG (27-34); Mean Corpuscular Volume 94.2 FL (87-102); Monocytes # 0.2 10*3/uL (0.11-0.8); Monocytes % 6.5 % (1.7-12.7); NRBC # 0.03 10*3/uL; Neutrophils # 2.3 10*3/uL (1.4-7.4); Neutrophils % 72.8 % (38.7-73.9); Red Blood Count 2.07 MC/CUMM (3.8-5.5); Red Cell Distribution Width 24.5 % (9.3-17.3); White Blood Count 3.2 T/CUMM (4-12)
[2018-01-21 23:21] LABS: Hemoglobin 5.3 GM/DL (14.0-18.0)
[2018-01-21 23:22] LABS: Platelet Count 28 T/CUMM (130-400)
[2018-01-22 00:58] LABS: % Iron Saturation 24.7 % (18-50)
[2018-01-22 01:21] LABS: Sedimentation Rate-Westergren 146 MM/HR (0-20)
[2018-01-22 02:58] LABS: Folate 8.4 NG/ML (5.4-24.0); Vitamin B12 1365 PG/ML (211-911)
[2018-01-22] MEDS: POTASSIUM CHLORIDE RIDER 10 MEQ in PREMIX 1 EACH IV PRN ×5 (04:45→11:46)
[2018-01-22] MEDS: PANTOPRAZOLE 40 MG VIAL IV SCH ×3 (06:50→21:57)
[2018-01-22] MEDS ORDERED: MULTIVITAMIN (CENTRUM) TABLET PO SCH (09:00)
[2018-01-22] MEDS ORDERED: CALCIUM (CARBONATE)/VITAMIN D 500 MG-200 UNIT TABLET PO SCH (09:00)
[2018-01-22] MEDS ORDERED: INFLUENZA VIRUS VACCINE 0.5 ML SYRINGE IM ONE (09:00)
[2018-01-22 09:05] LABS: Basophils % 0.8 % (0.0-0.8); Eosinophils # 0.2 10*3/uL (0.0-0.87); Eosinophils % 4.3 % (0.00-10.9); Hemoglobin 7.3 GM/DL (14.0-18.0); Immature Granulocytes % 4.3 %; Immature Granulocytes Absolute 0.17 #; Lymphocytes # 0.5 10*3/uL (1.4-4.0); Lymphocytes % 12.1 % (21.2-54.2); Mean Corpuscular HGB Conc 29.2 GM/DL (32-36); Mean Corpuscular Hemoglobin 27 PG (27-34); Mean Corpuscular Volume 91.9 FL (87-102); Mean Platelet Volume 10.4 FL (9.6-12.0); Monocytes # 0.3 10*3/uL (0.11-0.8); Monocytes % 6.3 % (1.7-12.7); NRBC # 0.02 10*3/uL; Neutrophils # 2.9 10*3/uL (1.4-7.4); Neutrophils % 72.2 % (38.7-73.9); Red Blood Count 2.72 MC/CUMM (3.8-5.5); Red Cell Distribution Width 21.4 % (9.3-17.3)
[2018-01-22 09:22] LABS: Platelet Count 24 T/CUMM (130-400)
[2018-01-22 09:58] LABS: Polychromasia Few
[2018-01-22 09:59] LABS: Elliptocytes Few
[2018-01-22 10:00] LABS: Anisocytosis 1+; Microcytosis 1+
[2018-01-22 10:02] LABS: Hypochromasia Slight
[2018-01-22 10:04] LABS: Platelet Estimate Decreased
[2018-01-22] MEDS ORDERED: SKIN HEALING OINT (AQUAPHOR) 50 GM TUBE TOP PRN (10:31)
[2018-01-22] MEDS: FOLIC ACID 1 MG TABLET PO SCH (10:54)
[2018-01-22] MEDS: THIAMINE 100 MG TABLET PO SCH (10:55)
[2018-01-22 11:05] LABS: Albumin 1.8 G/DL (3.4-5.0); Bilirubin,Total 5.9 MG/DL (0.2-1.0); Calcium 7.1 MG/DL (8.5-10.1); Total Protein 7.8 G/DL (6.4-8.3)
[2018-01-22 11:30] LABS: Osmolality,Calculated 276.3 MOS/KG (273-304); Potassium 3.3 MMOL/L (3.5-5.1)
[2018-01-22 11:56] LABS: Hepatitis A Ab IgM Quant 0.18 Index; Hepatitis A Ab IgM Result Negative (Negative); Hepatitis B Core IgM Quant < 0.05 Index; Hepatitis B Core IgM Result Negative (Negative); Hepatitis B Surface Ag Quant < 0.10 Index; Hepatitis B Surface Ag Result Negative (Negative); Hepatitis C Virus Ab Result Negative (Negative)
[2018-01-22] MEDS ORDERED: SODIUM CHLORIDE 0.9% 1,000 ML IV PRN (17:22)
[2018-01-22] MEDS ORDERED: FUROSEMIDE 20 MG/2 ML VIAL IV PRN (17:22)
[2018-01-22] MEDS ORDERED: MAGNESIUM SULF RIDER 4 GM in PREMIX 1 EACH IV PRN (17:33)
[2018-01-22] MEDS: POTASSIUM CHLORIDE 20 MEQ TABLET PO PRN ×3 (17:51→21:51)
[2018-01-22] MEDS: methylPREDNISolone SOD SUC 40 MG/1 ML VIAL IV SCH (17:51)
[2018-01-22] MEDS: MAGNESIUM SULF RIDER 2 GM in PREMIX 1 EACH IV PRN (17:52)
[2018-01-22] MEDS: LACTULOSE 20 GM/30 ML UDCUP PO SCH (20:35)
[2018-01-22] MEDS: RIFAXIMIN 550 MG TABLET PO SCH (20:35)
[2018-01-23 05:25] LABS: Basophils % 0.3 % (0.0-0.8); Eosinophils % 0.1 % (0.00-10.9); Hematocrit 34.9 VOL% (42.0-52.0); Immature Granulocytes % 4.3 %; Immature Granulocytes Absolute 0.29 #; Lymphocytes # 0.6 10*3/uL (1.4-4.0); Lymphocytes % 9.3 % (21.2-54.2); Mean Corpuscular HGB Conc 30.1 GM/DL (32-36); Mean Corpuscular Hemoglobin 27 PG (27-34); Mean Corpuscular Volume 88.8 FL (87-102); Mean Platelet Volume 11.9 FL (9.6-12.0); Monocytes # 0.2 10*3/uL (0.11-0.8); Monocytes % 2.2 % (1.7-12.7); NRBC # 0.04 10*3/uL; Neutrophils # 5.6 10*3/uL (1.4-7.4); Neutrophils % 83.8 % (38.7-73.9); Red Blood Count 3.93 MC/CUMM (3.8-5.5); Red Cell Distribution Width 22.3 % (9.3-17.3); White Blood Count 6.7 T/CUMM (4-12)
[2018-01-23 05:28] LABS: Hemoglobin 10.5 GM/DL (14.0-18.0); Platelet Count 53 T/CUMM (130-400)
[2018-01-23 05:59] LABS: Calcium 7.4 MG/DL (8.5-10.1); Osmolality,Calculated 272.7 MOS/KG (273-304); Potassium 3.5 MMOL/L (3.5-5.1)
[2018-01-23 06:09] LABS: Platelet Estimate Decreased
[2018-01-23] MEDS: POTASSIUM CHLORIDE 20 MEQ TABLET PO PRN ×2 (06:28→09:24)
[2018-01-23] MEDS: RIFAXIMIN 550 MG TABLET PO SCH ×2 (09:24→21:09)
[2018-01-23] MEDS: PANTOPRAZOLE 40 MG VIAL IV SCH ×2 (09:24→21:10)
[2018-01-23] MEDS: FOLIC ACID 1 MG TABLET PO SCH (09:24)
[2018-01-23] MEDS: THIAMINE 100 MG TABLET PO SCH (09:24)
[2018-01-23] MEDS: methylPREDNISolone SOD SUC 40 MG/1 ML VIAL IV SCH (09:25)
[2018-01-23 10:19] LABS: Hemoglobin A1 (Alkaline) 97.7 % (96.5-98.5); Hemoglobin A2 (Alkaline) 2.3 % (1.5-3.5)
[2018-01-23] MEDS: LACTULOSE 20 GM/30 ML UDCUP PO SCH ×2 (10:33→21:09)
[2018-01-24 05:38] LABS: Basophils % 0.1 % (0.0-0.8); Eosinophils % 0.1 % (0.00-10.9); Hematocrit 34.4 VOL% (42.0-52.0); Hemoglobin 10.2 GM/DL (14.0-18.0); Immature Granulocytes % 1.5 %; Immature Granulocytes Absolute 0.13 #; Lymphocytes # 0.6 10*3/uL (1.4-4.0); Lymphocytes % 7.2 % (21.2-54.2); Mean Corpuscular HGB Conc 29.7 GM/DL (32-36); Mean Corpuscular Hemoglobin 27 PG (27-34); Mean Corpuscular Volume 90.8 FL (87-102); Mean Platelet Volume 12.1 FL (9.6-12.0); Monocytes # 0.6 10*3/uL (0.11-0.8); Monocytes % 6.8 % (1.7-12.7); NRBC # 0.02 10*3/uL; Neutrophils # 7.2 10*3/uL (1.4-7.4); Neutrophils % 84.3 % (38.7-73.9); Platelet Count 48 T/CUMM (130-400); Red Blood Count 3.79 MC/CUMM (3.8-5.5); Red Cell Distribution Width 23.9 % (9.3-17.3); White Blood Count 8.5 T/CUMM (4-12)
[2018-01-24 05:55] LABS: Potassium 3.4 MMOL/L (3.5-5.1)
[2018-01-24 07:45] LABS: Band Neutrophils 4 % (0-10); Lymphocytes 9 % (20-55); Platelet Estimate Decreased; Segmented Neutrophils 82 % (50-85); Total Cells Counted 100
[2018-01-24] MEDS: methylPREDNISolone SOD SUC 40 MG/1 ML VIAL IV SCH (08:29)
[2018-01-24] MEDS: LACTULOSE 20 GM/30 ML UDCUP PO SCH (08:29)
[2018-01-24] MEDS: RIFAXIMIN 550 MG TABLET PO SCH (08:29)
[2018-01-24] MEDS: POTASSIUM CHLORIDE 20 MEQ TABLET PO PRN ×3 (08:29→15:15)
[2018-01-24] MEDS: MAGNESIUM SULF RIDER 2 GM in PREMIX 1 EACH IV PRN (08:29)
[2018-01-24] MEDS: THIAMINE 100 MG TABLET PO SCH (08:29)
[2018-01-24] MEDS: PANTOPRAZOLE 40 MG VIAL IV SCH (08:29)
[2018-01-24] MEDS: FOLIC ACID 1 MG TABLET PO SCH (08:29)
[2018-01-24 20:21] VITALS: BP 127/82
== END 2018-01-24 16:40 | disposition home or self-care (01) | DRG 433 ==
LOC: N.5E 20:03 → SUATTDRO 20:03 → N.5E 01-24 16:22
PROVIDERS: ADMIT Internal Medicine; ATTEND Internal Medicine

== ENCOUNTER 2018-05-11 21:11 | Inpatient (IN) ==
[2018-05-11] MEDS ORDERED: PANTOPRAZOLE 40 MG VIAL IV STA (21:34)
[2018-05-11 21:44] LABS: Basophils % 0.5 % (0.0-0.8); Eosinophils # 0.1 10*3/uL (0.0-0.87); Eosinophils % 3.5 % (0.00-10.9); Hematocrit 29.1 VOL% (42.0-52.0); Hemoglobin 9.4 GM/DL (14.0-18.0); Immature Granulocytes % 0.3 %; Immature Granulocytes Absolute 0.01 #; Lymphocytes # 0.5 10*3/uL (1.4-4.0); Lymphocytes % 12.3 % (21.2-54.2); Mean Corpuscular HGB Conc 32.3 GM/DL (32-36); Mean Corpuscular Hemoglobin 28 PG (27-34); Mean Corpuscular Volume 87.1 FL (87-102); Mean Platelet Volume 8.8 FL (9.6-12.0); Monocytes # 0.4 10*3/uL (0.11-0.8); Monocytes % 10.8 % (1.7-12.7); Neutrophils # 2.9 10*3/uL (1.4-7.4); Neutrophils % 72.6 % (38.7-73.9); Red Blood Count 3.34 MC/CUMM (3.8-5.5); Red Cell Distribution Width 18.6 % (9.3-17.3)
[2018-05-11 21:48] LABS: Platelet Count 59 T/CUMM (130-400)
[2018-05-11 21:51] LABS: INR 1.5; PT Patient Result 16.6 SECS; Partial Thromboplastin Time 36.9 SECS (0-40)
[2018-05-11 22:18] LABS: Albumin 2.5 G/DL (3.4-5.0); Bilirubin,Total 1.8 MG/DL (0.2-1.0); Calcium 7.8 MG/DL (8.5-10.1); Osmolality,Calculated 274.8 MOS/KG (273-304); Potassium 3.4 MMOL/L (3.5-5.1); Total Protein 6.8 G/DL (6.4-8.3)
[2018-05-11] MEDS ORDERED: SODIUM CHLORIDE 0.9% 1,000 ML IV PRN (23:43)
[2018-05-11] MEDS ORDERED: ONDANSETRON 4 MG/2 ML VIAL IV PRN (23:49)
[2018-05-11] MEDS ORDERED: ALBUTEROL 2.5 MG/3 ML NEB RESP TX PRN (23:49)
[2018-05-12] MEDS ORDERED: MAGNESIUM SULF RIDER 4 GM in PREMIX 1 EACH IV PRN (00:37)
[2018-05-12] MEDS ORDERED: MAGNESIUM SULF RIDER 2 GM in PREMIX 1 EACH IV PRN (00:37)
[2018-05-12] MEDS: PANTOPRAZOLE INJ 200 MG in SODIUM CHLORIDE 0.9% 250 ML IV SCH (00:46)
[2018-05-12] MEDS: OCTREOTIDE 500 MCG in SODIUM CHLORIDE 0.9% 100 ML IV SCH ×3 (00:47→21:37)
[2018-05-12] MEDS: SODIUM CHLORIDE 0.9% 1,000 ML IV SCH ×2 (01:23→14:43)
[2018-05-12 04:52] LABS: Basophils % 0.6 % (0.0-0.8); Eosinophils # 0.2 10*3/uL (0.0-0.87); Eosinophils % 6.6 % (0.00-10.9); Hematocrit 26.8 VOL% (42.0-52.0); Hemoglobin 8.5 GM/DL (14.0-18.0); Immature Granulocytes % 0.3 %; Immature Granulocytes Absolute 0.01 #; Lymphocytes # 0.7 10*3/uL (1.4-4.0); Lymphocytes % 20.1 % (21.2-54.2); Mean Corpuscular HGB Conc 31.7 GM/DL (32-36); Mean Corpuscular Hemoglobin 28 PG (27-34); Mean Corpuscular Volume 87.9 FL (87-102); Mean Platelet Volume 11.9 FL (9.6-12.0); Monocytes # 0.4 10*3/uL (0.11-0.8); Monocytes % 10.8 % (1.7-12.7); Neutrophils # 2.1 10*3/uL (1.4-7.4); Neutrophils % 61.6 % (38.7-73.9); Red Blood Count 3.05 MC/CUMM (3.8-5.5); Red Cell Distribution Width 18.9 % (9.3-17.3); White Blood Count 3.3 T/CUMM (4-12)
[2018-05-12 04:55] LABS: Platelet Count 67 T/CUMM (130-400)
[2018-05-12 04:57] LABS: INR 1.5; PT Patient Result 16.2 SECS
[2018-05-12 05:09] LABS: Calcium 7.7 MG/DL (8.5-10.1); Osmolality,Calculated 276.8 MOS/KG (273-304); Potassium 3.8 MMOL/L (3.5-5.1)
[2018-05-12] MEDS: POTASSIUM CHLORIDE RIDER 10 MEQ in PREMIX 1 EACH IV PRN ×2 (07:30→08:30)
[2018-05-12 09:52] LABS: Hematocrit 28.2 VOL% (42.0-52.0)
[2018-05-12] MEDS: LACTULOSE 20 GM/30 ML UDCUP PO SCH (11:10)
[2018-05-12] MEDS: PHENYTOIN ER 100 MG CAPSULE PO SCH ×2 (11:10→20:47)
[2018-05-12 14:49] LABS: Hematocrit 30.1 VOL% (42.0-52.0); Hemoglobin 9.5 GM/DL (14.0-18.0)
[2018-05-12 20:47] LABS: Hematocrit 28.2 VOL% (42.0-52.0); Hemoglobin 8.9 GM/DL (14.0-18.0)
[2018-05-13] MEDS: PANTOPRAZOLE INJ 200 MG in SODIUM CHLORIDE 0.9% 250 ML IV SCH (02:31)
[2018-05-13] MEDS: SODIUM CHLORIDE 0.9% 1,000 ML IV SCH ×2 (04:32→17:25)
[2018-05-13 06:07] LABS: Basophils % 1.3 % (0.0-0.8); Eosinophils # 0.3 10*3/uL (0.0-0.87); Eosinophils % 11.3 % (0.00-10.9); Hematocrit 28.6 VOL% (42.0-52.0); Immature Granulocytes % 0.3 %; Immature Granulocytes Absolute 0.01 #; Lymphocytes # 0.7 10*3/uL (1.4-4.0); Lymphocytes % 22.3 % (21.2-54.2); Mean Corpuscular HGB Conc 31.5 GM/DL (32-36); Mean Corpuscular Hemoglobin 28 PG (27-34); Mean Corpuscular Volume 88.5 FL (87-102); Mean Platelet Volume 10.1 FL (9.6-12.0); Monocytes # 0.5 10*3/uL (0.11-0.8); Neutrophils # 1.5 10*3/uL (1.4-7.4); Neutrophils % 49.8 % (38.7-73.9); Red Blood Count 3.23 MC/CUMM (3.8-5.5); Red Cell Distribution Width 18.6 % (9.3-17.3)
[2018-05-13 06:12] LABS: Platelet Count 52 T/CUMM (130-400)
[2018-05-13 06:13] LABS: INR 1.5; PT Patient Result 16.6 SECS
[2018-05-13 06:33] LABS: Calcium 7.6 MG/DL (8.5-10.1); Osmolality,Calculated 280.3 MOS/KG (273-304); Potassium 3.5 MMOL/L (3.5-5.1)
[2018-05-13 06:44] LABS: Eosinophils 7 % (0-10); Lymphocytes 16 % (20-55); Segmented Neutrophils 68 % (50-85); Total Cells Counted 100
[2018-05-13 06:45] LABS: Platelet Estimate Decreased; Polychromasia Few
[2018-05-13] MEDS: OCTREOTIDE 500 MCG in SODIUM CHLORIDE 0.9% 100 ML IV SCH ×2 (08:40→20:22)
[2018-05-13] MEDS ORDERED: PROPOFOL 200 MG/20 ML VIAL IV ONE (10:00)
[2018-05-13] MEDS ORDERED: LIDOCAINE 100 MG/5 ML SYRINGE ONE (10:00)
[2018-05-13] MEDS: LACTULOSE 20 GM/30 ML UDCUP PO SCH ×3 (10:48→21:51)
[2018-05-13] MEDS: PHENYTOIN ER 100 MG CAPSULE PO SCH ×2 (10:59→21:51)
[2018-05-13] MEDS ORDERED: oxyCODONE IR 5 MG TABLET PO ONE (23:10)
[2018-05-14 05:44] LABS: Eosinophils # 0.4 10*3/uL (0.0-0.87); Eosinophils % 10.5 % (0.00-10.9); Hematocrit 31.8 VOL% (42.0-52.0); Immature Granulocytes % 0.5 %; Immature Granulocytes Absolute 0.02 #; Lymphocytes # 0.7 10*3/uL (1.4-4.0); Lymphocytes % 19.4 % (21.2-54.2); Mean Corpuscular HGB Conc 31.4 GM/DL (32-36); Mean Corpuscular Hemoglobin 28 PG (27-34); Mean Corpuscular Volume 89.8 FL (87-102); Mean Platelet Volume 9.9 FL (9.6-12.0); Monocytes # 0.5 10*3/uL (0.11-0.8); Neutrophils # 2.2 10*3/uL (1.4-7.4); Neutrophils % 56.6 % (38.7-73.9); Red Blood Count 3.54 MC/CUMM (3.8-5.5); Red Cell Distribution Width 18.5 % (9.3-17.3); White Blood Count 3.8 T/CUMM (4-12)
[2018-05-14 05:46] LABS: Platelet Count 52 T/CUMM (130-400)
[2018-05-14 06:04] LABS: Acanthocytes Few; Hypochromasia 1+; Microcytosis 1+; Ovalocytes Few
[2018-05-14 06:05] LABS: Albumin 2.2 G/DL (3.4-5.0); Bilirubin,Total 2.1 MG/DL (0.2-1.0); Calcium 7.6 MG/DL (8.5-10.1); Osmolality,Calculated 276.4 MOS/KG (273-304); Potassium 3.7 MMOL/L (3.5-5.1); Total Protein 6.6 G/DL (6.4-8.3)
[2018-05-14 06:06] LABS: Platelet Estimate Decreased
[2018-05-14] MEDS: SODIUM CHLORIDE 0.9% 1,000 ML IV SCH (07:09)
[2018-05-14] MEDS: PANTOPRAZOLE INJ 200 MG in SODIUM CHLORIDE 0.9% 250 ML IV SCH (09:17)
[2018-05-14] MEDS: LACTULOSE 20 GM/30 ML UDCUP PO SCH ×2 (09:18→15:53)
[2018-05-14] MEDS: PHENYTOIN ER 100 MG CAPSULE PO SCH (09:18)
[2018-05-14 11:54] VITALS: BP 99/63
[2018-05-14] MEDS ORDERED: oxyCODONE ER 10 MG TABLET PO ONE (22:54)
[2018-05-15] MEDS ORDERED: PANTOPRAZOLE 40 MG VIAL IV SCH (09:00)
[2018-05-15] MEDS ORDERED: PANTOPRAZOLE 40 MG TABLET PO SCH (09:00)
== END 2018-05-14 16:25 | disposition home or self-care (01) | DRG 378 ==
LOC: EDBD → EDUNIT# → N.ED 21:11 → N.EDINP 21:11 → N.CC 23:52 → SUATTDRO 05-12 09:07 → N.2E 05-13 18:39
PROVIDERS: ADMIT Internal Medicine; ATTEND Internal Medicine

== ENCOUNTER 2018-06-09 14:12 | Inpatient (IN) ==
[2018-06-09] MEDS ORDERED: ZALEPLON 5 MG CAPSULE PO PRN (18:36)
[2018-06-09] MEDS ORDERED: ONDANSETRON 4 MG/2 ML VIAL IV PRN (18:36)
[2018-06-09] MEDS ORDERED: DOCUSATE SODIUM 100 MG CAPSULE PO PRN (18:36)
[2018-06-09] MEDS ORDERED: DEXTROSE 50% 25 GM/50 ML SYRINGE IV PRN (18:36)
[2018-06-09] MEDS ORDERED: GLUCAGON 1 MG VIAL IM PRN (18:36)
[2018-06-09] MEDS ORDERED: SKIN HEALING OINT (AQUAPHOR) 50 GM TUBE TOP PRN (18:41)
[2018-06-09] MEDS ORDERED: AZITHROMYCIN INJ 500 MG in SODIUM CHLORIDE 0.9% 250 ML IV SCH (19:00)
[2018-06-09] MEDS ORDERED: ENOXAPARIN 40 MG/0.4 ML SYRINGE SUBCUT SCH (21:00)
[2018-06-09] MEDS: LACTULOSE 20 GM/30 ML UDCUP PO SCH (21:14)
[2018-06-09] MEDS: SPIRONOLACTONE 50 MG TABLET PO SCH (21:15)
[2018-06-09] MEDS: PHENYTOIN 100 MG/4 ML UDCUP NG SCH (21:15)
[2018-06-09] MEDS: POTASSIUM CHLORIDE 20 MEQ TABLET PO SCH (21:15)
[2018-06-09] MEDS: RIFAXIMIN 550 MG TABLET PO SCH (21:15)
[2018-06-09] MEDS: predniSONE 20 MG TABLET PO SCH (21:15)
[2018-06-09] MEDS: FAMOTIDINE 20 MG TABLET PO SCH (21:16)
[2018-06-09] MEDS: PIPERACILLIN/TAZOBACTAM 2,250 MG in SODIUM CHLORIDE 0.9% 100 ML IV SCH (21:17)
[2018-06-09] MEDS: SODIUM CHLORIDE 0.45% 1,000 ML IV SCH (21:37)
[2018-06-09] MEDS: ALBUTEROL/IPRATROPIUM 3 ML NEB RESP TX PRN (21:41)
[2018-06-10] MEDS: INSULIN REGULAR 100 UNIT/ML SUBCUT SCH ×5 (00:29→21:38)
[2018-06-10] MEDS: PIPERACILLIN/TAZOBACTAM 2,250 MG in SODIUM CHLORIDE 0.9% 100 ML IV SCH ×2 (05:12→13:47)
[2018-06-10 05:17] LABS: Hematocrit 26.9 VOL% (42.0-52.0); Hemoglobin 8.3 GM/DL (14.0-18.0); Immature Granulocytes % 0.7 %; Immature Granulocytes Absolute 0.02 #; Lymphocytes # 0.5 10*3/uL (1.4-4.0); Lymphocytes % 18.6 % (21.2-54.2); Mean Corpuscular HGB Conc 30.9 GM/DL (32-36); Mean Corpuscular Hemoglobin 26 PG (27-34); Mean Corpuscular Volume 84.3 FL (87-102); Monocytes # 0.2 10*3/uL (0.11-0.8); Monocytes % 8.2 % (1.7-12.7); Neutrophils # 2.1 10*3/uL (1.4-7.4); Neutrophils % 72.5 % (38.7-73.9); Red Blood Count 3.19 MC/CUMM (3.8-5.5); White Blood Count 2.9 T/CUMM (4-12)
[2018-06-10 05:23] LABS: Platelet Count 30 T/CUMM (130-400)
[2018-06-10 05:29] LABS: Calcium 7.5 MG/DL (8.5-10.1); Osmolality,Calculated 275.5 MOS/KG (273-304); Potassium 3.8 MMOL/L (3.5-5.1)
[2018-06-10 05:37] LABS: Acanthocytes 2+; Platelet Estimate Decreased
[2018-06-10 05:44] LABS: Albumin 2.3 G/DL (3.4-5.0); Bilirubin,Direct 1.18 MG/DL (0.0-0.20); Bilirubin,Indirect 0.5 MG/DL (0.0-1.0); Bilirubin,Total 1.7 MG/DL (0.2-1.0); Total Protein 5.8 G/DL (6.4-8.3)
[2018-06-10] MEDS: ALBUTEROL/IPRATROPIUM 3 ML NEB RESP TX PRN (07:52)
[2018-06-10] MEDS ORDERED: FUROSEMIDE 40 MG TABLET PO SCH (09:00)
[2018-06-10] MEDS: SODIUM CHLORIDE 0.45% 1,000 ML IV SCH (09:26)
[2018-06-10] MEDS: LACTULOSE 20 GM/30 ML UDCUP PO SCH ×3 (09:26→21:28)
[2018-06-10] MEDS: RIFAXIMIN 550 MG TABLET PO SCH ×2 (09:27→21:29)
[2018-06-10] MEDS: predniSONE 20 MG TABLET PO SCH (09:27)
[2018-06-10] MEDS: SPIRONOLACTONE 50 MG TABLET PO SCH ×2 (09:27→21:28)
[2018-06-10] MEDS: FAMOTIDINE 20 MG TABLET PO SCH ×2 (09:27→21:28)
[2018-06-10] MEDS: POTASSIUM CHLORIDE 20 MEQ TABLET PO SCH ×2 (09:27→21:29)
[2018-06-10] MEDS: PHENYTOIN 100 MG/4 ML UDCUP NG SCH (09:27)
[2018-06-10] MEDS: PIPERACILLIN/TAZOBACTAM 3,375 MG in SODIUM CHLORIDE 0.9% 100 ML IV SCH ×2 (14:25→22:49)
[2018-06-10] MEDS ORDERED: LORazepam 1 MG TABLET PO PRN (15:57)
[2018-06-10] MEDS ORDERED: MAGNESIUM SULF RIDER 2 GM in PREMIX 1 EACH IV ONE ×2 (16:06→19:00)
[2018-06-10] MEDS: FUROSEMIDE 40 MG/4 ML VIAL IV SCH (16:57)
[2018-06-10] MEDS: ALBUTEROL/IPRATROPIUM 3 ML NEB RESP TX SCH ×2 (19:20→23:11)
[2018-06-10] MEDS ORDERED: OSELTAMIVIR 75 MG CAPSULE PO SCH (21:00)
[2018-06-10] MEDS: PHENYTOIN ER 100 MG CAPSULE PO SCH (21:29)
[2018-06-11 00:04] LABS: Apearance,Urine Slightly Hazy (Clear); Bilirubin,Urine Negative (Negative); Blood, Urine Negative (Negative); Glucose,Urine (UA) Negative (Negative); Ketones,Urine Negative (Negative); Nitrite,Urine Negative (Negative); Protein,Urine Negative; RBC,Urine <1 /HPF (0-4); Urine Color Straw (Yellow); Urine Specific Gravity 1.005 (1.001-1.035); Urine Urobilinogen < 2.0 EU/DL (0.2-1.0)
[2018-06-11] MEDS: ALBUTEROL/IPRATROPIUM 3 ML NEB RESP TX SCH ×6 (03:01→23:07)
[2018-06-11 05:18] LABS: Basophils % 0.3 % (0.0-0.8); Eosinophils % 0.6 % (0.00-10.9); Hematocrit 28.3 VOL% (42.0-52.0); Hemoglobin 8.7 GM/DL (14.0-18.0); Immature Granulocytes % 0.3 %; Immature Granulocytes Absolute 0.01 #; Lymphocytes # 0.9 10*3/uL (1.4-4.0); Lymphocytes % 27.1 % (21.2-54.2); Mean Corpuscular HGB Conc 30.7 GM/DL (32-36); Mean Corpuscular Hemoglobin 26 PG (27-34); Monocytes # 0.3 10*3/uL (0.11-0.8); Monocytes % 9.2 % (1.7-12.7); Neutrophils % 62.5 % (38.7-73.9); Red Blood Count 3.33 MC/CUMM (3.8-5.5); Red Cell Distribution Width 17.8 % (9.3-17.3); White Blood Count 3.3 T/CUMM (4-12)
[2018-06-11 05:26] LABS: INR 1.2; PT Patient Result 13.2 SECS; Partial Thromboplastin Time 35.6 SECS (0-40)
[2018-06-11 05:37] LABS: Platelet Count 34 T/CUMM (130-400)
[2018-06-11 05:43] LABS: Band Neutrophils 3 % (0-10); Lymphocytes 29 % (20-55); Segmented Neutrophils 59 % (50-85); Total Cells Counted 100
[2018-06-11 05:44] LABS: Hypochromasia 1+; Ovalocytes Slight; Platelet Estimate Decreased
[2018-06-11 05:48] LABS: Albumin 2.4 G/DL (3.4-5.0); Bilirubin,Total 2.5 MG/DL (0.2-1.0); Calcium 7.7 MG/DL (8.5-10.1); Osmolality,Calculated 273.5 MOS/KG (273-304); Potassium 3.5 MMOL/L (3.5-5.1)
[2018-06-11] MEDS: PIPERACILLIN/TAZOBACTAM 3,375 MG in SODIUM CHLORIDE 0.9% 100 ML IV SCH (06:09)
[2018-06-11] MEDS: INSULIN REGULAR 100 UNIT/ML SUBCUT SCH ×4 (08:32→20:31)
[2018-06-11] MEDS ORDERED: THIAMINE 200 MG/2 ML VIAL IV SCH (09:00)
[2018-06-11] MEDS: PHENYTOIN ER 100 MG CAPSULE PO SCH ×2 (09:42→22:33)
[2018-06-11] MEDS: FOLIC ACID 1 MG TABLET PO SCH (09:42)
[2018-06-11] MEDS: FAMOTIDINE 20 MG TABLET PO SCH ×2 (09:42→22:34)
[2018-06-11] MEDS: THIAMINE 100 MG TABLET PO SCH (09:42)
[2018-06-11] MEDS: LACTULOSE 20 GM/30 ML UDCUP PO SCH ×3 (09:42→22:34)
[2018-06-11] MEDS: FUROSEMIDE 40 MG/4 ML VIAL IV SCH ×2 (09:43→17:04)
[2018-06-11] MEDS: POTASSIUM CHLORIDE 20 MEQ TABLET PO SCH ×2 (09:43→22:50)
[2018-06-11] MEDS: RIFAXIMIN 550 MG TABLET PO SCH ×2 (09:43→22:33)
[2018-06-11] MEDS: SPIRONOLACTONE 50 MG TABLET PO SCH ×2 (09:43→22:33)
[2018-06-11] MEDS: OSELTAMIVIR 75 MG CAPSULE PO SCH ×2 (10:28→22:34)
[2018-06-11] MEDS: ACETAMINOPHEN 325 MG TABLET PO PRN (17:05)
[2018-06-12] MEDS: ALBUTEROL/IPRATROPIUM 3 ML NEB RESP TX SCH ×6 (03:12→22:43)
[2018-06-12 05:12] LABS: Hematocrit 23.8 VOL% (42.0-52.0); Hemoglobin 7.4 GM/DL (14.0-18.0); Immature Granulocytes % 0.5 %; Immature Granulocytes Absolute 0.01 #; Lymphocytes # 0.7 10*3/uL (1.4-4.0); Lymphocytes % 35.4 % (21.2-54.2); Mean Corpuscular HGB Conc 31.1 GM/DL (32-36); Mean Corpuscular Hemoglobin 26 PG (27-34); Mean Corpuscular Volume 83.8 FL (87-102); Monocytes # 0.2 10*3/uL (0.11-0.8); Monocytes % 11.6 % (1.7-12.7); Neutrophils % 51.5 % (38.7-73.9); Red Blood Count 2.84 MC/CUMM (3.8-5.5); Red Cell Distribution Width 17.6 % (9.3-17.3)
[2018-06-12 05:36] LABS: Platelet Count 26 T/CUMM (130-400)
[2018-06-12 05:58] LABS: Anisocytosis 1+; Band Neutrophils 7 % (0-10); Eosinophils 1 % (0-10); Hypochromasia 2+; Lymphocytes 35 % (20-55); Metamyelocytes 5 %; Microcytosis 1+; Myelocytes 1 %; Ovalocytes 2+; Platelet Estimate Decreased; Segmented Neutrophils 40 % (50-85); Total Cells Counted 100
[2018-06-12] MEDS: FOLIC ACID 1 MG TABLET PO SCH (08:59)
[2018-06-12] MEDS: PHENYTOIN ER 100 MG CAPSULE PO SCH ×2 (08:59→21:01)
[2018-06-12] MEDS: RIFAXIMIN 550 MG TABLET PO SCH ×2 (08:59→21:00)
[2018-06-12] MEDS: SPIRONOLACTONE 50 MG TABLET PO SCH ×2 (08:59→21:05)
[2018-06-12] MEDS: OSELTAMIVIR 75 MG CAPSULE PO SCH ×2 (09:00→21:01)
[2018-06-12] MEDS: THIAMINE 100 MG TABLET PO SCH (09:00)
[2018-06-12] MEDS: FAMOTIDINE 20 MG TABLET PO SCH ×2 (09:00→21:01)
[2018-06-12] MEDS: LACTULOSE 20 GM/30 ML UDCUP PO SCH ×4 (09:01→21:01)
[2018-06-12] MEDS: FUROSEMIDE 40 MG/4 ML VIAL IV SCH ×2 (09:01→16:08)
[2018-06-12] MEDS: INSULIN REGULAR 100 UNIT/ML SUBCUT SCH ×4 (09:06→22:19)
[2018-06-12] MEDS ORDERED: SODIUM CHLORIDE 0.9% 1,000 ML IV PRN (17:51)
[2018-06-13] MEDS: ALBUTEROL/IPRATROPIUM 3 ML NEB RESP TX SCH ×5 (02:10→19:43)
[2018-06-13] MEDS: guaiFENesin/DM ER 600-30 MG TABLET PO PRN (02:41)
[2018-06-13 04:17] LABS: Eosinophils # 0.1 10*3/uL (0.0-0.87); Eosinophils % 2.7 % (0.00-10.9); Hematocrit 27.8 VOL% (42.0-52.0); Hemoglobin 8.8 GM/DL (14.0-18.0); Immature Granulocytes % 0.4 %; Immature Granulocytes Absolute 0.01 #; Lymphocytes # 0.8 10*3/uL (1.4-4.0); Lymphocytes % 31.4 % (21.2-54.2); Mean Corpuscular HGB Conc 31.7 GM/DL (32-36); Mean Corpuscular Hemoglobin 26 PG (27-34); Mean Corpuscular Volume 83.5 FL (87-102); Monocytes # 0.3 10*3/uL (0.11-0.8); Neutrophils # 1.4 10*3/uL (1.4-7.4); Neutrophils % 54.5 % (38.7-73.9); Platelet Count 44 T/CUMM (130-400); Red Blood Count 3.33 MC/CUMM (3.8-5.5); Red Cell Distribution Width 17.1 % (9.3-17.3); White Blood Count 2.6 T/CUMM (4-12)
[2018-06-13 04:37] LABS: Albumin 2.1 G/DL (3.4-5.0); Bilirubin,Total 2.4 MG/DL (0.2-1.0); Calcium 6.9 MG/DL (8.5-10.1); Osmolality,Calculated 268.8 MOS/KG (273-304); Potassium 2.6 MMOL/L (3.5-5.1); Total Protein 5.5 G/DL (6.4-8.3)
[2018-06-13 05:17] LABS: Band Neutrophils 2 % (0-10); Eosinophils 2 % (0-10); Lymphocytes 23 % (20-55); Segmented Neutrophils 64 % (50-85); Total Cells Counted 100
[2018-06-13 05:18] LABS: Anisocytosis 1+; Ovalocytes 1+; Platelet Estimate Decreased
[2018-06-13] MEDS ORDERED: POTASSIUM CHLORIDE 20 MEQ TABLET PO SCH ×2 (09:00→21:00)
[2018-06-13] MEDS: INSULIN REGULAR 100 UNIT/ML SUBCUT SCH ×4 (09:42→20:44)
[2018-06-13] MEDS: OSELTAMIVIR 75 MG CAPSULE PO SCH ×2 (09:49→20:43)
[2018-06-13] MEDS: SPIRONOLACTONE 50 MG TABLET PO SCH ×2 (09:49→20:43)
[2018-06-13] MEDS: PHENYTOIN ER 100 MG CAPSULE PO SCH ×2 (09:49→20:43)
[2018-06-13] MEDS: LACTULOSE 20 GM/30 ML UDCUP PO SCH ×3 (09:49→20:43)
[2018-06-13] MEDS: FOLIC ACID 1 MG TABLET PO SCH (09:49)
[2018-06-13] MEDS: THIAMINE 100 MG TABLET PO SCH (09:50)
[2018-06-13] MEDS: RIFAXIMIN 550 MG TABLET PO SCH ×2 (09:50→20:43)
[2018-06-13] MEDS: FUROSEMIDE 40 MG/4 ML VIAL IV SCH ×2 (09:50→17:28)
[2018-06-13] MEDS: FAMOTIDINE 20 MG TABLET PO SCH (10:02)
[2018-06-13 11:05] LABS: Eosinophils # 0.1 10*3/uL (0.0-0.87); Eosinophils % 2.4 % (0.00-10.9); Hematocrit 33.1 VOL% (42.0-52.0); Hemoglobin 10.6 GM/DL (14.0-18.0); Immature Granulocytes % 0.8 %; Immature Granulocytes Absolute 0.02 #; Lymphocytes # 0.7 10*3/uL (1.4-4.0); Lymphocytes % 25.9 % (21.2-54.2); Mean Corpuscular Hemoglobin 27 PG (27-34); Monocytes # 0.3 10*3/uL (0.11-0.8); Monocytes % 10.4 % (1.7-12.7); Neutrophils # 1.5 10*3/uL (1.4-7.4); Neutrophils % 60.5 % (38.7-73.9); Red Blood Count 3.99 MC/CUMM (3.8-5.5); White Blood Count 2.5 T/CUMM (4-12)
[2018-06-13 11:08] LABS: Platelet Count 33 T/CUMM (130-400)
[2018-06-13 11:24] LABS: Albumin 2.5 G/DL (3.4-5.0); Bilirubin,Total 2.8 MG/DL (0.2-1.0); Calcium 7.4 MG/DL (8.5-10.1); Osmolality,Calculated 270.8 MOS/KG (273-304); Potassium 2.7 MMOL/L (3.5-5.1); Total Protein 6.5 G/DL (6.4-8.3)
[2018-06-13 11:44] LABS: Elliptocytes Few; Hypochromasia 2+; Microcytosis 2+; Ovalocytes Few; Platelet Estimate Decreased; Polychromasia Slight; Schistocytes Few
[2018-06-13] MEDS ORDERED: MAGNESIUM SULF RIDER 4 GM in PREMIX 1 EACH IV PRN (12:53)
[2018-06-13] MEDS: MAGNESIUM SULF RIDER 2 GM in PREMIX 1 EACH IV PRN (14:10)
[2018-06-13] MEDS: POTASSIUM CHLORIDE RIDER 10 MEQ in PREMIX 1 EACH IV PRN ×4 (14:14→20:44)
[2018-06-13] MEDS: POTASSIUM CHLORIDE 20 MEQ TABLET PO SCH (20:43)
[2018-06-13] MEDS ORDERED: LACTULOSE 20 GM/30 ML UDCUP PO SCH (21:00)
[2018-06-14] MEDS: ALBUTEROL/IPRATROPIUM 3 ML NEB RESP TX SCH ×7 (00:05→23:31)
[2018-06-14 05:02] LABS: Eosinophils # 0.1 10*3/uL (0.0-0.87); Eosinophils % 3.5 % (0.00-10.9); Hematocrit 29.9 VOL% (42.0-52.0); Hemoglobin 9.5 GM/DL (14.0-18.0); Immature Granulocytes % 0.3 %; Immature Granulocytes Absolute 0.01 #; Lymphocytes # 0.8 10*3/uL (1.4-4.0); Lymphocytes % 25.6 % (21.2-54.2); Mean Corpuscular HGB Conc 31.8 GM/DL (32-36); Mean Corpuscular Hemoglobin 26 PG (27-34); Mean Corpuscular Volume 82.4 FL (87-102); Monocytes # 0.4 10*3/uL (0.11-0.8); Monocytes % 13.2 % (1.7-12.7); Neutrophils # 1.8 10*3/uL (1.4-7.4); Neutrophils % 57.4 % (38.7-73.9); Red Blood Count 3.63 MC/CUMM (3.8-5.5); Red Cell Distribution Width 16.7 % (9.3-17.3); White Blood Count 3.2 T/CUMM (4-12)
[2018-06-14 05:12] LABS: Platelet Count 42 T/CUMM (130-400)
[2018-06-14 06:54] LABS: Hypochromasia Slight; Platelet Estimate Decreased
[2018-06-14 06:55] LABS: Ovalocytes 2+; Target Cells Few
[2018-06-14] MEDS: MAGNESIUM SULF RIDER 2 GM in PREMIX 1 EACH IV PRN (07:06)
[2018-06-14 08:10] LABS: Albumin 2.3 G/DL (3.4-5.0); Bilirubin,Total 2.6 MG/DL (0.2-1.0); Osmolality,Calculated 272.5 MOS/KG (273-304); Total Protein 5.8 G/DL (6.4-8.3)
[2018-06-14] MEDS: INSULIN REGULAR 100 UNIT/ML SUBCUT SCH ×3 (08:25→16:52)
[2018-06-14] MEDS: FUROSEMIDE 40 MG/4 ML VIAL IV SCH ×2 (10:05→17:45)
[2018-06-14] MEDS: FAMOTIDINE 20 MG TABLET PO SCH (10:06)
[2018-06-14] MEDS: POTASSIUM CHLORIDE 20 MEQ TABLET PO SCH ×2 (10:06→20:24)
[2018-06-14] MEDS: RIFAXIMIN 550 MG TABLET PO SCH ×2 (10:06→20:24)
[2018-06-14] MEDS: SPIRONOLACTONE 50 MG TABLET PO SCH ×2 (10:07→20:23)
[2018-06-14] MEDS: OSELTAMIVIR 75 MG CAPSULE PO SCH ×2 (10:07→20:23)
[2018-06-14] MEDS: FOLIC ACID 1 MG TABLET PO SCH (10:07)
[2018-06-14] MEDS: THIAMINE 100 MG TABLET PO SCH (10:07)
[2018-06-14] MEDS: LACTULOSE 20 GM/30 ML UDCUP PO SCH ×3 (10:08→20:23)
[2018-06-14] MEDS: PHENYTOIN ER 100 MG CAPSULE PO SCH ×2 (10:09→20:23)
[2018-06-14] MEDS: POTASSIUM CHLORIDE RIDER 10 MEQ in PREMIX 1 EACH IV PRN ×5 (10:09→16:11)
[2018-06-14] MEDS: ACETAMINOPHEN 325 MG TABLET PO PRN (23:53)
[2018-06-15] MEDS: INSULIN REGULAR 100 UNIT/ML SUBCUT SCH ×5 (00:43→20:43)
[2018-06-15] MEDS: ALBUTEROL/IPRATROPIUM 3 ML NEB RESP TX SCH ×6 (03:59→22:31)
[2018-06-15 08:13] LABS: Basophils % 0.7 % (0.0-0.8); Eosinophils # 0.1 10*3/uL (0.0-0.87); Eosinophils % 4.4 % (0.00-10.9); Hemoglobin 10.1 GM/DL (14.0-18.0); Immature Granulocytes % 0.3 %; Immature Granulocytes Absolute 0.01 #; Lymphocytes # 0.7 10*3/uL (1.4-4.0); Lymphocytes % 23.6 % (21.2-54.2); Mean Corpuscular HGB Conc 31.6 GM/DL (32-36); Mean Corpuscular Hemoglobin 26 PG (27-34); Mean Corpuscular Volume 83.1 FL (87-102); Mean Platelet Volume 10.2 FL (9.6-12.0); Monocytes # 0.4 10*3/uL (0.11-0.8); Monocytes % 12.5 % (1.7-12.7); Neutrophils # 1.7 10*3/uL (1.4-7.4); Neutrophils % 58.5 % (38.7-73.9); Red Blood Count 3.85 MC/CUMM (3.8-5.5); Red Cell Distribution Width 16.9 % (9.3-17.3)
[2018-06-15 08:15] LABS: Platelet Count 51 T/CUMM (130-400)
[2018-06-15] MEDS: OSELTAMIVIR 75 MG CAPSULE PO SCH ×2 (08:23→20:45)
[2018-06-15] MEDS: POTASSIUM CHLORIDE 20 MEQ TABLET PO SCH ×2 (08:23→20:45)
[2018-06-15] MEDS: LACTULOSE 20 GM/30 ML UDCUP PO SCH ×3 (08:24→20:45)
[2018-06-15] MEDS: PHENYTOIN ER 100 MG CAPSULE PO SCH ×2 (08:25→20:45)
[2018-06-15] MEDS: SPIRONOLACTONE 50 MG TABLET PO SCH ×2 (08:25→20:45)
[2018-06-15] MEDS: FOLIC ACID 1 MG TABLET PO SCH (08:25)
[2018-06-15] MEDS: FAMOTIDINE 20 MG TABLET PO SCH (08:25)
[2018-06-15] MEDS: THIAMINE 100 MG TABLET PO SCH (08:26)
[2018-06-15] MEDS: RIFAXIMIN 550 MG TABLET PO SCH ×2 (08:26→20:45)
[2018-06-15] MEDS: FUROSEMIDE 40 MG/4 ML VIAL IV SCH ×2 (08:29→16:23)
[2018-06-15 08:39] LABS: Anisocytosis 1+; Platelet Estimate Decreased; Poikilocytosis 1+
[2018-06-15 08:40] LABS: Tear Drop Cells Few
[2018-06-15 08:42] LABS: Albumin 2.4 G/DL (3.4-5.0); Calcium 7.7 MG/DL (8.5-10.1); Osmolality,Calculated 268.8 MOS/KG (273-304); Potassium 3.7 MMOL/L (3.5-5.1); Total Protein 6.2 G/DL (6.4-8.3)
[2018-06-15] MEDS ORDERED: VANCOMYCIN INJ 1,500 MG in SODIUM CHLORIDE 0.9% 500 ML IV ONE (15:00)
[2018-06-16] MEDS: ALBUTEROL/IPRATROPIUM 3 ML NEB RESP TX SCH ×6 (02:38→23:16)
[2018-06-16] MEDS: INSULIN REGULAR 100 UNIT/ML SUBCUT SCH ×4 (07:45→20:36)
[2018-06-16] MEDS ORDERED: MAGNESIUM SULF RIDER 2 GM in PREMIX 1 EACH IV ONE (08:00)
[2018-06-16] MEDS: FOLIC ACID 1 MG TABLET PO SCH (08:26)
[2018-06-16] MEDS: RIFAXIMIN 550 MG TABLET PO SCH ×2 (08:26→21:36)
[2018-06-16] MEDS: LACTULOSE 20 GM/30 ML UDCUP PO SCH ×3 (08:26→21:36)
[2018-06-16] MEDS: POTASSIUM CHLORIDE 20 MEQ TABLET PO SCH ×2 (08:26→21:35)
[2018-06-16] MEDS: OSELTAMIVIR 75 MG CAPSULE PO SCH ×2 (08:26→21:36)
[2018-06-16] MEDS: PHENYTOIN ER 100 MG CAPSULE PO SCH ×2 (08:27→21:35)
[2018-06-16] MEDS: SPIRONOLACTONE 50 MG TABLET PO SCH ×2 (08:27→21:35)
[2018-06-16] MEDS: FAMOTIDINE 20 MG TABLET PO SCH (08:27)
[2018-06-16] MEDS: THIAMINE 100 MG TABLET PO SCH (08:27)
[2018-06-16] MEDS: FUROSEMIDE 40 MG/4 ML VIAL IV SCH ×2 (08:29→16:41)
[2018-06-16] MEDS: VANCOMYCIN INJ 1,500 MG in SODIUM CHLORIDE 0.9% 500 ML IV SCH (16:49)
[2018-06-16] MEDS: guaiFENesin/DM ER 600-30 MG TABLET PO PRN (21:35)
[2018-06-17] MEDS: ALBUTEROL/IPRATROPIUM 3 ML NEB RESP TX SCH ×4 (03:13→14:25)
[2018-06-17 05:05] LABS: Basophils % 0.6 % (0.0-0.8); Eosinophils # 0.1 10*3/uL (0.0-0.87); Eosinophils % 3.5 % (0.00-10.9); Hematocrit 31.2 VOL% (42.0-52.0); Hemoglobin 9.8 GM/DL (14.0-18.0); Immature Granulocytes % 0.6 %; Immature Granulocytes Absolute 0.02 #; Lymphocytes # 0.8 10*3/uL (1.4-4.0); Lymphocytes % 23.5 % (21.2-54.2); Mean Corpuscular HGB Conc 31.4 GM/DL (32-36); Mean Corpuscular Hemoglobin 26 PG (27-34); Monocytes # 0.5 10*3/uL (0.11-0.8); Monocytes % 15.3 % (1.7-12.7); Neutrophils # 1.9 10*3/uL (1.4-7.4); Neutrophils % 56.5 % (38.7-73.9); Platelet Count 54 T/CUMM (130-400); Red Blood Count 3.76 MC/CUMM (3.8-5.5); Red Cell Distribution Width 17.1 % (9.3-17.3); White Blood Count 3.4 T/CUMM (4-12)
[2018-06-17 05:44] LABS: Calcium 7.5 MG/DL (8.5-10.1); Potassium 3.1 MMOL/L (3.5-5.1)
[2018-06-17] MEDS: VANCOMYCIN INJ 1,500 MG in SODIUM CHLORIDE 0.9% 500 ML IV SCH (05:50)
[2018-06-17 06:03] LABS: Eosinophils 2 % (0-10); Hypochromasia 1+; Lymphocytes 19 % (20-55); Ovalocytes Slight; Platelet Estimate Decreased; Segmented Neutrophils 68 % (50-85); Total Cells Counted 100
[2018-06-17] MEDS: MAGNESIUM SULF RIDER 2 GM in PREMIX 1 EACH IV PRN (06:26)
[2018-06-17] MEDS: INSULIN REGULAR 100 UNIT/ML SUBCUT SCH ×2 (08:02→11:56)
[2018-06-17] MEDS: POTASSIUM CHLORIDE RIDER 10 MEQ in PREMIX 1 EACH IV PRN ×4 (09:10→13:06)
[2018-06-17] MEDS: FUROSEMIDE 40 MG/4 ML VIAL IV SCH ×2 (09:12→15:16)
[2018-06-17] MEDS: LACTULOSE 20 GM/30 ML UDCUP PO SCH ×2 (09:12→15:16)
[2018-06-17] MEDS: SPIRONOLACTONE 50 MG TABLET PO SCH (09:14)
[2018-06-17] MEDS: FOLIC ACID 1 MG TABLET PO SCH (09:14)
[2018-06-17] MEDS: THIAMINE 100 MG TABLET PO SCH (09:15)
[2018-06-17] MEDS: FAMOTIDINE 20 MG TABLET PO SCH (09:15)
[2018-06-17] MEDS: PHENYTOIN ER 100 MG CAPSULE PO SCH (09:16)
[2018-06-17] MEDS: POTASSIUM CHLORIDE 20 MEQ TABLET PO SCH (09:16)
[2018-06-17 11:50] VITALS: BP 116/71
== END 2018-06-17 15:30 | disposition home health service (06) | DRG 300 ==
LOC: N.2E → SUATTDRO 17:10
PROVIDERS: ADMIT Internal Medicine; ATTEND Internal Medicine